=== PATIENT | female | born 1955 | race Caucasian/White ===

== ENCOUNTER → 2016-06-11 | Outpatient (CLI) | payer OTHER ==
[~2016-06-11] MED LIST: ALEN70TA2 PO; ALEN70TA47 PO; ALLO300T2 PO; ASPI-586 PO; CALC-654 PO; FURO-125 PO; HYDR-3816 PO; LORA10TA7 PO; ORPH100T PO; RT-ALBUINH IH
--- OUTSIDE RECORDS SUMMARY | 2016-06-11 17:56 | XMS REPORT | Continuity of Care Document ---
Author Author [facility] Organization [facility] Address Unknown Phone Unavailable Allergies Medications Problems Procedures Results Encounters ACCT No. Visit Date/Time Discharge Status Pt. Type Provider Facility Loc./Unit Complaint [id number] 12/25/2013 17:02:00 2013 23:59:59 CLS Outpatient
--- NOTE | 2016-06-11 19:09 | Diagnostic Imaging Report ---
INDICATION: Left leg swelling COMPARISON: None TECHNIQUE: Duplex, streeter-scale and color-flow imaging of the left lower extremity venous system was performed. FINDINGS: The common femoral vein, superficial femoral vein, profunda femoris, and popliteal veins are normal. These vessels show normal compressibility, color flow, and doppler augmentation. The deep calf veins, although not very well seen, demonstrate no distinct intraluminal thrombus. IMPRESSION: Negative venous Doppler of the left lower extremity. Dictated by: Dictated on workstation # [id number]
== END ==
LOC: RAD 17:52
PROVIDERS: ATTEND Nurse Practitioner Family
DX: R60.0 Localized edema (principal)

== ENCOUNTER → 2016-06-22 | Outpatient (CLI) | payer OTHER ==
--- OUTSIDE RECORDS SUMMARY | 2016-06-22 11:43 | XMS REPORT | Continuity of Care Document ---
Author Author [facility] Organization [facility] Address Unknown Phone Unavailable Allergies Medications Problems Date Dx Coded Attending Type Code Diagnosis Diagnosed By 06/11/2016 MARIANNE VU APRN Ot 719.45 JOINT PAIN-PELVIS 06/12/2016 MARIANNE VU APRN Ot R60.0 LOCALIZED EDEMA Procedures Results Encounters ACCT No. Visit Date/Time Discharge Status Pt. Type Provider Facility Loc./Unit Complaint [id number] 12/25/2013 17:02:00 2013 23:59:59 CLS Outpatient MARIANNE VU APRN [facility] RAD PAIN IN JOINT, HIP PAIN [id number] 06/11/2016 17:52:00 ACT Outpatient MARIANNE VU APRN [facility] RAD EDEMA OF LOWER EXTREMITY
--- NOTE | 2016-06-22 18:25 | Diagnostic Imaging Report ---
PA and lateral chest. INDICATION: Shortness of breath. There are no prior studies available for comparison. FINDINGS: Heart size is at the upper limits of normal. The lungs are clear. There is no evidence for failure, pneumonia or for pleural effusion. Mediastinum is not widened. The osseous structures are intact. IMPRESSION: There is no evidence for an acute cardiopulmonary abnormality. Dictated by: Dictated on workstation # [id number]
== END ==
LOC: RAD 11:39
DX: R63.4 Abnormal weight loss (principal)
CPT/HCPCS: 71020

== ENCOUNTER → 2016-06-24 | Outpatient (CLI) | payer OTHER ==
[~2016-06-24] MED LIST changes: +CATHETER FLUSH 10 ML SYR IV PRN; +IOHEXOL 350 MG/ML 100 ML (OMNIPAQUE 350) VIAL IV ONE; +NS 100 ML (IVPB) BAG IV ONE
--- OUTSIDE RECORDS SUMMARY | 2016-06-24 11:59 | XMS REPORT | Continuity of Care Document ---
Author Author [facility] Organization [facility] Address Unknown Phone Unavailable Allergies Medications Problems Date Dx Coded Attending Type Code Diagnosis Diagnosed By 06/11/2016 MARIANNE VU APRN Ot 719.45 JOINT PAIN-PELVIS 06/12/2016 MARIANNE VU APRN Ot R60.0 LOCALIZED EDEMA 06/22/2016 MARIANNE VU APRN Ot R60.0 LOCALIZED EDEMA 06/23/2016 NAHUN BRYAN, JES Gomez Ot R63.4 ABNORMAL WEIGHT LOSS Procedures Results Encounters ACCT No. Visit Date/Time Discharge Status Pt. Type Provider Facility Loc./Unit Complaint [id number] 12/25/2013 17:02:00 2013 23:59:59 CLS Outpatient MARIANNE VU APRN [facility] RAD PAIN IN JOINT, HIP PAIN [id number] 06/22/2016 11:39:00 ACT Outpatient NAHUN BRYAN , JES Gomez [facility] RAD ABNORMAL WEIGHT LOSS [id number] 06/11/2016 17:52:00 ACT Outpatient MARIANNE VU APRN [facility] RAD EDEMA OF LOWER EXTREMITY
--- NOTE | 2016-06-24 12:55 | Diagnostic Imaging Report ---
PROCEDURE: CT abdomen and pelvis with contrast. TECHNIQUE: Multiple contiguous axial images were obtained through the abdomen and pelvis after administration of intravenous contrast. INDICATION: Left-sided swelling, history of hysterectomy, gallbladder surgery, appendectomy. CONTRAST: 100 mL of Omnipaque was given intravenously. COMPARISON STUDIES: None. FINDINGS: The lung bases are clear. The liver appears normal. Tiny subcapsular hypodense nodule is present within the spleen measuring approximately 1 cm. This is probably a cyst. The pancreas, adrenal glands and kidneys are normal. Urinary bladder is normal. The uterus is absent. There is no ascites or free air. There is a 5 x 6.7 cm mass adjacent to the left acetabulum. The distal external iliac artery and veins sit just above this. This measures 57 Hounsfield units on postcontrast and delayed images. This may be a hematoma. No abnormal adenopathy is present. No free fluid is present. Mild degenerative changes are present in the spine and both hips. IMPRESSION: 1. There is a slightly hyperdense mass along the anteromedial aspect of the left acetabulum just posterior to the vascular structures. This is most likely a hematoma. Recommend followup exam either ultrasound or CT to document resolution. If the patient has had this for greater than several months, MRI scan would be recommended. Dictated by: Dictated on workstation # [id number]
== END ==
LOC: RAD 11:55
DX: R10.32 Left lower quadrant pain (principal)
CPT/HCPCS: 74177

== ENCOUNTER → 2016-07-03 | Outpatient (CLI) | payer OTHER ==
[~2016-07-03] MED LIST changes: -CATHETER FLUSH 10 ML SYR IV PRN; +GADOBUTROL 7.5 MMOL/7.5 ML (GADAVIST) VIAL IV ONE; -IOHEXOL 350 MG/ML 100 ML (OMNIPAQUE 350) VIAL IV ONE; -NS 100 ML (IVPB) BAG IV ONE
--- OUTSIDE RECORDS SUMMARY | 2016-07-03 15:07 | XMS REPORT | Continuity of Care Document ---
Author Author [facility] Organization [facility] Address Unknown Phone Unavailable Allergies Active Description Code Type Severity Reaction Onset Reported/Identified Relationship to Patient Clinical Status Yes No Allergy Information Available [id number] Drug Allergy Unknown N/A 06/24/2016 Medications Problems Date Dx Coded Attending Type Code Diagnosis Diagnosed By 06/11/2016 MARIANNE VU APRN Ot 719.45 JOINT PAIN-PELVIS 06/12/2016 MARIANNE VU APRN Ot R60.0 LOCALIZED EDEMA 06/22/2016 MARIANNE VU APRN Ot R60.0 LOCALIZED EDEMA 06/23/2016 JES GARNICA MD Ot R63.4 ABNORMAL WEIGHT LOSS 06/25/2016 JES GARNICA MD Ot R10.32 LEFT LOWER QUADRANT PAIN 06/30/2016 JES GARNICA MD Ot R10.32 LEFT LOWER QUADRANT PAIN 07/02/2016 MARIANNE VU APRN Ot R60.0 LOCALIZED EDEMA 07/02/2016 JES GARNICA MD Ot R10.32 LEFT LOWER QUADRANT PAIN 07/02/2016 JES GARNICA MD Ot R63.4 ABNORMAL WEIGHT LOSS Procedures Results Encounters ACCT No. Visit Date/Time Discharge Status Pt. Type Provider Facility Loc./Unit Complaint [id number] 12/25/2013 17:02:00 2013 23:59:59 CLS Outpatient MARIANNE VU APRN [facility] RAD PAIN IN JOINT, HIP PAIN [id number] 07/03/2016 15:02:00 ACT Outpatient JES GARNICA MD [facility] RAD I89.0 [id number] 06/24/2016 11:55:00 ACT Outpatient JES GARNICA MD [facility] RAD LLQ PAIN [id number] 06/22/2016 11:39:00 ACT Outpatient JES GARNICA MD [facility] RAD ABNORMAL WEIGHT LOSS [id number] 06/11/2016 17:52:00 ACT Outpatient MARIANNE VU APRN [facility] RAD EDEMA OF LOWER EXTREMITY
--- NOTE | 2016-07-03 17:09 | Diagnostic Imaging Report ---
PROCEDURE: MRI left joint lower extremity with and without contrast. TECHNIQUE: Multiplanar, multisequence pre and post contrast-enhanced MRI of the left lower extremity was accomplished. INDICATION: Left-sided swelling. FINDINGS: There are no previous MRI examinations available for comparison. The CT abdomen/pelvis exam performed on 06/24/2016 noted a slightly hyperdense mass measuring 5 x 6 cm along the pelvic sidewall on the left. This mass was suspicious to be a hematoma. On this study, the finding is again evident. This lesion has not changed significantly in size. On the post contrast series, there are areas of diminished signal within this mass and there is slight generalized enhancement of the mass itself. There also appears to be edema/inflammation of the subcutaneous fat of the lower leg. I suspect that this is secondary to compression of the venous structures by the mass. I am concerned that this mass is neoplastic in nature as opposed to hematoma. If further imaging is desired, then PET/CT would be recommended. There is no abnormal signal arising from the bony pelvis to suggest an acute abnormality. IMPRESSION: 1. The mass along the pelvic sidewall on the left seen previously is again evident. This finding is worrisome for neoplasm. Recommendations as above. 2. These results were discussed with Dr. Garett Fountain. Dictated by: Dictated on workstation # [id number]
== END ==
LOC: RAD 15:02
DX: I89.0 Lymphedema, not elsewhere classified (principal)
CPT/HCPCS: 73723

== ENCOUNTER 2016-07-13 07:08 | Day surgery (SDC) | payer OTHER ==
[~2016-07-13] VITALS: Ht 160 cm; Wt 59.4 kg
[2016-07-13] VITALS (14 sets, daily range): BP systolic 120–162; BP diastolic 67–86
[2016-07-13 08:02] LABS: MEAN PLATELET VOLUME 9.1 FL (7.4-10.4); RED BLOOD COUNT 3.55 10^6/uL (4.35-5.85); RED CELL DISTRIBUTION WIDTH 13.2 % (10.0-14.5); WHITE BLOOD COUNT 5.4 10^3/uL (4.3-11.0)
[2016-07-13 08:18] LABS: INR 0.9 (0.8-1.4); PROTHROMBIN TIME PATIENT 12.2 SEC (12.2-14.7)
[2016-07-13] MEDS ORDERED: LIDOCAINE 1% INJ 20 ML (XYLOCAINE) VIAL ONE (08:24)
[2016-07-13] MEDS ORDERED: fentaNYL INJECTION 100 MCG/2 ML AMP ONE (08:24)
[2016-07-13] MEDS ORDERED: LIDOCAINE 1% INJ 20 ML (XYLOCAINE) VIAL INJ ONE (09:15)
[2016-07-13] MEDS ORDERED: fentaNYL INJECTION 100 MCG/2 ML AMP IVP PRN (09:15)
--- NOTE | 2016-07-13 09:31 | Pre-Procedure Progress Note ---
Standard Progress Note Progress Notes/Assess & Plan Progress/Assessment & Plan H&P reviewed with the no changes. Left pelvic mass. Final Diagnosis Left pelvic mass TU BURCH MD Jul 13, 2016 09:31
--- NOTE | 2016-07-13 09:32 | Discharge Instructions ---
Discharge Instructions Home Medicaitons Changes Hold any current blood thinner home medications for [24 hours]. TU BURCH MD Jul 13, 2016 09:32
[2016-07-13] MEDS ORDERED: HYDROcodone/APAP 5 MG/325 MG (LORTAB) TAB PO PRN (09:45)
[2016-07-13] MEDS ORDERED: CALC-654 PO (09:55)
[2016-07-13] MEDS ORDERED: HYDR-3816 PO (09:55)
[2016-07-13] MEDS ORDERED: RT-ALBUINH IH (09:55)
[2016-07-13] MEDS ORDERED: ORPH100T PO (09:55)
[2016-07-13] MEDS ORDERED: ALEN70TA47 PO (09:55)
--- NOTE | 2016-07-13 10:45 | Diagnostic Imaging Report ---
EXAMINATION: CT-guided biopsy-pelvic mass. INDICATION: Left pelvic mass possibly arising from a left external iliac lymph node or adjacent to the left pelvic wall. Current history and physical and other medical records are reviewed prior to the procedure. CONSENT: Informed consent was obtained from the patient. The risks, benefits, potential complications and alternatives were reviewed and all questions answered to the patient's satisfaction. The patient's vital signs, cardiac rhythm, and pulse oximetry were observed throughout the procedure by qualified nursing personnel. medications: Fentanyl 25 mcg IV. FINDINGS: Left pelvic mass. PROCEDURE: After maximal sterile barrier technique preparation and draping, 1% lidocaine was utilized for local anesthesia. With the patient in supine position, and via anterior approach, a 17-gauge guide needle is introduced into the left pelvic mass under CT scan guidance. After confirming adequate positioning with saved CT images, multiple 18 gauge core biopsy specimens were obtained. Specimen in saline and in formalin were provided The patient tolerated the procedure well with no immediate complications. IMPRESSION: Successful CT-guided biopsy of left pelvic mass. Dictated by: Dictated on workstation # [id number]
--- OUTSIDE RECORDS SUMMARY | 2016-07-28 16:51 | XMS REPORT | Continuity of Care Document ---
Author Author [facility] Organization [facility] Address Unknown Phone Unavailable Allergies Active Description Code Type Severity Reaction Onset Reported/Identified Relationship to Patient Clinical Status Yes No Allergy Information Available [id number] Drug Allergy Unknown N/A 06/24/2016 Yes codeine [id number] Drug Allergy Mild NAUSEA 07/13/2016 Yes ibuprofen [id number] Drug Allergy Mild N/A 07/13/2016 Yes baclofen [id number] Drug Allergy Unknown N/A 07/13/2016 Yes doxycycline [id number] Drug Allergy Unknown N/A 07/13/2016 Yes pentazocine [id number] Drug Allergy Unknown N/A 07/13/2016 Yes pseudoephedrine [id number] Drug Allergy Unknown HIVES 07/13/2016 Medications Problems Date Dx Coded Attending Type Code Diagnosis Diagnosed By 06/11/2016 MARIANNE VU PRODUCTIVITY ENGINEER Ot 719.45 JOINT PAIN-PELVIS 06/12/2016 MARIANNE UV PRODUCTIVITY ENGINEER Ot R60.0 LOCALIZED EDEMA 06/22/2016 MARIANNE VU PRODUCTIVITY ENGINEER Ot R60.0 LOCALIZED EDEMA 06/23/2016 JES GARNICA MD Ot R63.4 ABNORMAL WEIGHT LOSS 06/25/2016 JES GARNICA MD Ot R10.32 LEFT LOWER QUADRANT PAIN 06/30/2016 JES GANRICA MD Ot R10.32 LEFT LOWER QUADRANT PAIN 07/02/2016 MARIANNE VU PRODUCTIVITY ENGINEER Ot R60.0 LOCALIZED EDEMA 07/02/2016 JES GARNICA MD Ot R10.32 LEFT LOWER QUADRANT PAIN 07/02/2016 JES GARNICA MD Ot R63.4 ABNORMAL WEIGHT LOSS 07/03/2016 JSE GARNICA MD Ot R63.4 ABNORMAL WEIGHT LOSS 07/13/2016 JES GARNICA MD Ot C85.19 UNSP B-CELL LYMPHOMA, EXTRANODAL AND LUIS 07/13/2016 JES GARNICA MD Ot D53.9 NUTRITIONAL ANEMIA, UNSPECIFIED 07/13/2016 JES GARNICA MD Ot M25.552 PAIN IN LEFT HIP 07/13/2016 JES GARNICA MD Ot R53.83 OTHER FATIGUE 07/13/2016 JES GARNICA MD Ot R60.0 LOCALIZED EDEMA 07/15/2016 JES GARNICA MD Ot R10.32 LEFT LOWER QUADRANT PAIN 07/16/2016 JES GARNICA MD Ot C85.19 UNSP B-CELL LYMPHOMA, EXTRANODAL AND LUIS 07/16/2016 JES GARNICA MD Ot D53.9 NUTRITIONAL ANEMIA, UNSPECIFIED 07/16/2016 JES GARNICA MD Ot M25.552 PAIN IN LEFT HIP 07/16/2016 JES GARNICA MD Ot R53.83 OTHER FATIGUE 07/16/2016 JES GARNICA MD Ot R60.0 LOCALIZED EDEMA 07/22/2016 JES GARNICA MD Ot C85.19 UNSP B-CELL LYMPHOMA, EXTRANODAL AND LUIS 07/22/2016 JES GARNICA MD Ot D53.9 NUTRITIONAL ANEMIA, UNSPECIFIED 07/22/2016 JES GARNICA MD Ot M25.552 PAIN IN LEFT HIP 07/22/2016 JES GARNICA MD Ot R53.83 OTHER FATIGUE 07/22/2016 JES GARNICA MD Ot R60.0 LOCALIZED EDEMA 07/23/2016 JES GARNICA MD Ot I89.0 LYMPHEDEMA, NOT ELSEWHERE CLASSIFIED Procedures Results Test Result Range Automated blood complete blood count (hemogram) panel - 07/13/16 07:55 Blood leukocytes automated count (number/volume) 5.4 10*3/ uL 4.3-11.0 Blood erythrocytes automated count (number/volume) 3.55 10*6 /uL 4.35-5.85 Venous blood hemoglobin measurement (mass/volume) 9.8 g/dL 11.5-16.0 Blood hematocrit (volume fraction) 31 % 35-52 Automated erythrocyte mean corpuscular volume 88 [foz_us] 80-99 Automated erythrocyte mean corpuscular hemoglobin (mass per erythrocyte) 28 pg 25-34 Automated erythrocyte mean corpuscular hemoglobin concentration measurement ( mass/volume) 31 g/dL 32-36 Automated erythrocyte distribution width ratio 13.2 % 10.0-14.5 Automated blood platelet count (count/volume) 299 10*3/uL 130-400 Automated blood platelet mean volume measurement 9.1 [foz_us ] 7.4-10.4 PT panel in platelet poor plasma by coagulation assay - 07/13/16 07:55 Prothrombin time (PT) in platelet poor plasma by coagulation assay 12.2 s 12.2-14.7 INR in platelet poor plasma or blood by coagulation assay 0.9 0.8-1.4 Activated partial thromboplastin time (aPTT) in platelet poor plasma bycoagulation assay - 07/13/16 07:55 Activated partial thromboplastin time (aPTT) in platelet poor plasma bycoagulation assay 29 s 24-35 Encounters ACCT No. Visit Date/Time Discharge Status Pt. Type Provider Facility Loc./Unit Complaint [id number] 07/13/2016 07:08:00 2016 14:10:00 DIS Outpatient JES GARNICA MD [facility] RAD GENERALIZED INTRA-ABD AND PELVIC SWELLING [id number] 12/25/2013 17:02:00 2013 23:59:59 CLS Outpatient MARIANNE VU APRN [facility] RAD PAIN IN JOINT, HIP PAIN [id number] 07/23/2016 10:03:00 ACT Outpatient SHANTI ADAMS [facility] ONC [id number] 07/03/2016 15:02:00 ACT Outpatient JES GARNICA MD [facility] RAD I89.0 [id number] 06/24/2016 11:55:00 ACT Outpatient JES GARNICA MD [facility] RAD LLQ PAIN [id number] 06/22/2016 11:39:00 ACT Outpatient JES GARNICA MD [facility] RAD ABNORMAL WEIGHT LOSS [id number] 06/11/2016 17:52:00 ACT Outpatient MARIANNE VU APRN [facility] RAD EDEMA OF LOWER EXTREMITY
== END 2016-07-13 14:10 | disposition home or self-care (01) ==
LOC: DELPENDDIS → RAD 07:08
DX: C85.19 Unspecified B-cell lymphoma, extranodal and solid organ sites (principal); M25.552 Pain in left hip; R53.83 Other fatigue; R60.0 Localized edema; D53.9 Nutritional anemia, unspecified
CPT/HCPCS: 36415; 77012; 85027; 85610; 85730; 88184; 88185; 88305; 88341; 88342

== ENCOUNTER → 2016-07-28 | Outpatient (CLI) | payer OTHER ==
[~2016-07-28] MED LIST changes: +BARIUM SUSPENSION 2.1% (VANILLA SILQ) 450 ML PO ONE; +CATHETER FLUSH 10 ML SYR IV PRN; -GADOBUTROL 7.5 MMOL/7.5 ML (GADAVIST) VIAL IV ONE; +IOHEXOL 350 MG/ML 100 ML (OMNIPAQUE 350) VIAL IV ONE; +NS 100 ML (IVPB) BAG IV ONE
--- NOTE | 2016-07-28 16:22 | Diagnostic Imaging Report ---
EXAMINATION: PET-CT TECHNIQUE: Serum glucose level at the time of the study is: 113 mg/dL. 12.5 mCi of FDG was administered intravenously followed by obtaining PET images with corresponding noncontrast CT scan images. The CT scan was performed for anatomic correlation and attenuation correction and was not performed according to the diagnostic protocol of the areas covered. The scan was performed from the head to mid thighs. INDICATION: Lymphoma. FINDINGS: There is a 9 x 6 left pelvic mass abutting the external iliac vessels on the left side and the adjacent aspect of the left iliac bone and anterior acetabulum. This is associated with highly intense degree of FDG uptake with maximum SUV of 29. This has some extension into the left inguinal region. A separate more inferior left the inguinal lymph node measuring 1.6 CM with the hypermetabolism is also seen. The FDG activity is inseparable from the activity seen within the distal left ureter. The FDG activity is also overlapping over the cortex of the anterior acetabulum and superior pubic ramus on the left side which is likely secondary to artifactual shine-through from the very intense hypermetabolism in the adjacent mass. Based on prior MRI, no bone or marrow involvement is identified. The spleen is normal in size with no hypermetabolic abnormal activity seen. Urinary tract activity is seen in the kidneys. There is no hypermetabolic mass seen above the diaphragm. Physiologic symmetric activity in the brain is noted. No hypermetabolic mass in the neck is identified. IMPRESSION: 1. Intensely hypermetabolic 9 cm left pelvic mass with extension into the left inguinal region is compatible with biopsy results of lymphoma. There is a separate more inferior mildly enlarged hypermetabolic lymph nodes seen. 2. Hypermetabolism projecting over the adjacent pelvic bones is probably an artifact with MRI of 07/03/2016 demonstrate the mass abutting the bone with no abnormal extension into the bone seen. 3. No other hypermetabolic mass or lymph node is seen. Dictated by: Dictated on workstation # [id number]
--- NOTE | 2016-07-28 16:57 | Diagnostic Imaging Report ---
PROCEDURE: CT chest, abdomen, and pelvis with contrast. TECHNIQUE: Multiple contiguous axial images were obtained through the chest, abdomen, and pelvis after the administration of intravenous contrast. INDICATION: Initial staging for lymphoma. FINDINGS: CT CHEST: There is no significantly enlarged axillary, mediastinal or hilar lymph nodes seen. The heart size is normal. The thoracic aorta is normal in caliber. The lungs demonstrate no significant consolidation, mass or suspicious nodule. The osseous structures demonstrate degenerative changes in the lower thoracic spine. CT ABDOMEN AND PELVIS: The liver, the spleen, the adrenal glands, and the pancreas demonstrate no definite abnormality. Air-filled lesion adjacent to the pancreatic head is probably a duodenal diverticulum. The kidneys have symmetric enhancement and contrast excretion. There is no hydronephrosis. The abdominal aorta is normal in caliber. No para-aortic significantly enlarged lymph nodes seen. There is a large left pelvic mass measuring 8.8 x 5.9 x 6.7 CM in size with heterogenous enhancement. This is probably arising from a left external iliac lymph node and is abutting and compressing the left external iliac vein. This has a lobulated extension inferiorly into the left inguinal region with a separate 1.6 cm left inguinal lymph node seen. There is no left common iliac or left internal iliac enlarged lymph nodes. There is incidental note of deep venous thrombosis involving the common femoral vein. Swelling of the visualized aspect superiorly in the left lower extremity is noted with subcutaneous edema. The osseous structures demonstrate no suspicious mass. The mass in the pelvis is abutting the pelvic bones along the acetabulum and adjacent aspect of the superior left pubic ramus with no definite direct invasion seen. Sclerotic focus in the anterior aspect of the right femoral neck measuring 1.2 cm is likely a bony island. IMPRESSION: CT CHEST: No lymphadenopathy or mass. CT ABDOMEN AND PELVIS: 1. A pelvic 8.8 cm mass probably arising from the left external iliac lymph node chain with an extension into the left inguinal region and a separate inferior 1.6 cm left inguinal lymph node is seen. 2. DVT involving the left common femoral vein. The findings were discussed with Dr. Manuel by Dr. Shelby at time of dictation. Dictated by: Dictated on workstation # [id number]
== END ==
LOC: RAD 10:48
PROVIDERS: ATTEND Internal Medicine Hematology & Oncology
DX: C85.10 Unspecified B-cell lymphoma, unspecified site (principal)
CPT/HCPCS: 71260; 74177

== ENCOUNTER 2016-07-30 05:37 | Outpatient (CLI) | payer OTHER ==
[~2016-07-30] VITALS: Ht 160 cm; Wt 59.4 kg
[~2016-07-30 05:37] MED LIST changes: -ALEN70TA2 PO; -ALLO300T2 PO; -ASPI-586 PO; -FURO-125 PO; -LORA10TA7 PO
[2016-07-30] MEDS ORDERED: HYDR-3816 PO (11:58)
[2016-07-30] MEDS ORDERED: FURO-125 PO (11:58)
[2016-07-30] MEDS ORDERED: ALLO300T2 PO (11:58)
[2016-07-31] MEDS ORDERED: ALEN70TA2 PO (06:46)
[2016-07-31] MEDS ORDERED: LORA10TA7 PO (06:46)
[2016-07-31] MEDS ORDERED: ORPH100T PO (06:46)
[2016-07-31] MEDS ORDERED: ASPI-586 PO (07:12)
== END 2016-07-30 11:59 ==
LOC: PREOP 05:37
PROVIDERS: ATTEND Surgery
DX: Z01.818 Encounter for other preprocedural examination (principal); C85.90 Non-Hodgkin lymphoma, unspecified, unspecified site

== ENCOUNTER → 2016-07-30 | Outpatient (CLI) | payer OTHER ==
[~2016-07-30] MED LIST changes: -BARIUM SUSPENSION 2.1% (VANILLA SILQ) 450 ML PO ONE; -CATHETER FLUSH 10 ML SYR IV PRN; -IOHEXOL 350 MG/ML 100 ML (OMNIPAQUE 350) VIAL IV ONE; -NS 100 ML (IVPB) BAG IV ONE
--- NOTE | 2016-07-31 06:46 | ECHOCARDIOGRAPHY REPORT ---
DATE OF SERVICE: 2D ECHOCARDIOGRAM REPORT DATE OF SERVICE: 07/30/2016 PRIMARY PHYSICIAN: Dr. aGrett Fountain ORDERING PHYSICIAN: Dr. Fadumo Faust DIAGNOSIS: C83.30 FINDINGS: 1. Sinus rhythm. 2. Left atrial dimension is normal. 3. Aortic root dimension is normal. 4. Left ventricular systolic function is hyperdynamic. Left ventricular ejection fraction is 75%. No LVH is present. 5. There is no wall motion abnormalities. 6. Right heart function and size is normal. 7. There is no evidence of pericardial effusion. 8. Mild diastolic dysfunction is present. 9. IVC is normal with diameter 1.4 cm. VALVULAR STRUCTURES OF THE HEART: There is trace pulmonic insufficiency and aortic insufficiency. There is mild tricuspid regurgitation with RVSP of 32 mmHg. There is no mitral valve pathology. CONCLUSION: 1. Hyperdynamic left ventricle with an ejection fraction of 75% which may suggest dehydration. 2. Right ventricle size and function is normal. 3. There is no significant valvular heart disease. 4. There is mild diastolic dysfunction. 5. There is mild pulmonary hypertension with RVSP of 32 mmHg. Job ID: [id number] DocumentID: [id number] Dictated Date: 07/30/2016 14:49:31 Martial Arts Instructor Date: 07/30/2016 15:28:21 Dictated By: RITO DEMPSEY MD
== END ==
LOC: CARD 08:51
PROVIDERS: ATTEND Internal Medicine Hematology & Oncology
DX: Z01.810 Encounter for preprocedural cardiovascular examination (principal); C83.30 Diffuse large B-cell lymphoma, unspecified site
CPT/HCPCS: 93306

== ENCOUNTER 2016-07-31 06:13 | Day surgery (SDC) | payer OTHER ==
[~2016-07-31] VITALS: Ht 160 cm; Wt 59.4 kg
[~2016-07-31 06:13] MED LIST changes: +ALLO300T2 PO; +FURO-125 PO
[2016-07-31] MEDS ORDERED: ALEN70TA2 PO (06:46)
[2016-07-31] MEDS ORDERED: ORPH100T PO (06:46)
[2016-07-31] MEDS ORDERED: LORA10TA7 PO (06:46)
[2016-07-31 07:05] VITALS: BP 106/83
[2016-07-31] MEDS: LACTATED RINGERS 1,000 ML IV PRN ×2 (07:11→09:45)
[2016-07-31] MEDS ORDERED: ASPI-586 PO (07:12)
[2016-07-31] MEDS ORDERED: ceFAZolin 1,000 MG (ANCEF) VIAL ONE (07:14)
[2016-07-31] MEDS ORDERED: NS (IVPB) 50 ML ONE (07:14)
[2016-07-31] MEDS ORDERED: LIDOCAINE 1% INJ 20 ML (XYLOCAINE) VIAL ONE (07:21)
[2016-07-31] MEDS ORDERED: HEParin (CENTRAL IV FLUSH) 500 UNIT/5 ML SYR ONE (07:21)
[2016-07-31] MEDS ORDERED: BUPIVACAINE 0.5% 30 ML (SENSORCAINE) VIAL ONE (07:21)
[2016-07-31] MEDS ORDERED: 0.9% SODIUM CHLORIDE PF INJ 20 ML VIAL ONE (07:21)
[2016-07-31] MEDS ORDERED: MIDAZOLAM 2 MG/2 ML (VERSED) VIAL ONE (07:29)
[2016-07-31] MEDS ORDERED: proPOfol 200 MG/20 ML (DIPRIVAN) VIAL IV ONE (07:29)
--- NOTE | 2016-07-31 08:13 | Discharge Inst-Simple/Standard ---
Discharge Inst-Standard Patient Instructions/Follow Up Plan of Care/Instructions/FU: Follow up with Dr. Chavez in 2 weeks Apply ice to area for 15 mins on and 15 mins off. Activity as Tolerated: No Discharge Diet: No Restrictions Other Inst to Patient Follow up Appt: Make appointment for 2 weeks. Apply ice to area for 15 mins on and 15 mins off. Instructions: No lifting greater than 10 pounds. No strenuous activity. May shower in 24 hours, no tub bath or soaking. Use incentive spirometer at home as directed. No Smoking Skin/Wound Care: May remove bandages. You need to leave the white strips over incision on they will fall off on their own. Symptoms to Report: Appetite Changes, Extremity Discoloration, Numbness/Tingling, Swelling Increased , Bleeding Excessive, Eyesight Changes, Pain Increased, Urine Color Change, Constipation(Persistent), Fever over 101 degree F, Pain/Pressure in chest, Urinating Difficulty, Cough Up/Vomit Blood, Heart Beat Irreg/Pounding, Pain/ Pressure in jaw, Vaginal Bleeding Increase, Cramps in feet or legs, Lightheadedness, Pain/Pressure in shoulder, Diarrhea(Persistent), Memory Changes Suddenly, Questions/Concerns, Weight gain consecutive days, Dizziness/ Fainting, Nausea/Vomiting, Shortness of Breath, Weight gain over 2 pounds If questions or concerns contact your physician Or seek help at emergency department. TARA SCHWARZ APRN Jul 31, 2016 08:13
--- NOTE | 2016-07-31 09:00 | Progress Note-Pre Operative ---
Pre-Operative Progress Note H&P Reviewed The H&P was reviewed, patient examined and no changes noted. Date H&P Reviewed: Jul 31, 2016 Time H&P Reviewed: 08:59 Pre-Operative Diagnosis: lymphoma OMER SORENSEN DO Jul 31, 2016 9:00 am
[2016-07-31] MEDS ORDERED: fentaNYL INJECTION 100 MCG/2 ML AMP ONE (09:17)
[2016-07-31] MEDS ORDERED: LACTATED RINGERS 1,000 ML IV ONE (09:44)
--- NOTE | 2016-07-31 09:53 | Progress Note-Post Operative ---
Post-Operative Progess Note Surgeon (s)/Creative/Art Director (s) Surgeon OMER SORENSEN DO Creative/Art Director: 0 Pre-Operative Diagnosis lymphoma Post-Operative Diagnosis SAME Post-Op Procedure Note Date of Procedure: Jul 31, 2016 Name of Procedure Performed: POWER PORT PLACEMENT RIGHT IJ USING U/S GUIDANCE Description of the Procedure: SEE NOTE Findings of the Procedure SEE NOTE Anesthesia Type MAC C LOCAL Estimated blood loss (mL): MINIMAL Specimen(s) collected/removed NONE OMER SORENSEN DO Jul 31, 2016 9:53 am
[2016-07-31] MEDS ORDERED: fentaNYL INJECTION 100 MCG/2 ML AMP IVP PRN (10:00)
[2016-07-31 10:20] VITALS: BP 114/66
--- NOTE | 2016-07-31 10:24 | Diagnostic Imaging Report ---
Portable upright radiograph of the chest. INDICATION: Port placement. FINDINGS: There is a left port placed with the tip at the upper SVC level. There is no pneumothorax. The heart size is moderately enlarged with no evidence of failure. No effusion or pneumothorax. IMPRESSION: Cardiomegaly. Right port placed with the tip in the SVC. Dictated by: Dictated on workstation # [id number]
[2016-07-31 10:50] VITALS: BP 117/64
[2016-07-31 11:20] VITALS: BP 112/69
[2016-07-31 12:08] VITALS: BP 112/69
--- NOTE | 2016-07-31 16:14 | Diagnostic Imaging Report ---
EXAM: Intraoperative image of the chest. INDICATION: Post placement. FINDINGS: 22 seconds of fluoroscopy time were Provided. IMPRESSION: Provided image demonstrates a right IJ port placement with the tip at the SVC level. Dictated by: Dictated on workstation # [id number]
--- NOTE | 2016-08-03 13:04 | OPERATIVE REPORT ---
PROCEDURE PHYSICIAN: OMER CHAVEZ DATE OF PROCEDURE: 07/31/2016 PREOPERATIVE DIAGNOSIS: Lymphoma. POSTOPERATIVE DIAGNOSIS: Lymphoma. PROCEDURE: Power port placement using ultrasound guidance right internal jugular vein. SURGEON: Dr. Chavez. ANESTHESIA: MAC with local. ESTIMATED BLOOD LOSS: Minimal. COMPLICATIONS: None. INDICATIONS: The patient is a 61-year-old female who presents for port placement for lymphoma. She understands the risks and benefits of the procedure and wishes to proceed with procedure. Consent signed on the chart. PROCEDURE: The patient was taken to the operating suite. She was prepped and draped in sterile fashion. A surgical pause was performed. Using ultrasound, the right internal jugular vein was located. Local anesthetic was infiltrated into the area and the right internal jugular vein was accessed with micro-access needle. Dark nonpulsatile blood was withdrawn. The micro-access wire was inserted and fluoroscopy assured proper placement. The dilator sheath was then advanced over the wire and the wire was removed. The normal guidewire was inserted and fluoroscopy assured proper placement. The wire was then secured. Local anesthetic was infiltrated along the right neck for tunneling purposes onto the right chest. A 15 blade scalpel was used to make an incision over the right chest for creating a pocket. Cautery was used to dissect along with blunt dissection in order to create the pocket. Once the pocket was created, a dilator sheath was then advanced over the wire under fluoroscopy and the wire and dilator were removed. The Groshong catheter was inserted through the sheath and the sheath was then removed. The Groshong wire was removed. The catheter was then tunneled from the neck to the right chest. It was then cut to length and secured to the port which was then placed within the pocket. The port was then accessed without difficulty. It withdrew blood and flushed first with saline and then with heparin without difficulty. The subcutaneous tissues were then reapproximated using 3-0 Vicryl. Skin was then closed using 4-0 Vicryl in a running subcuticular fashion. The areas were washed and dried. Mastisol and Steri-Strips were applied. Sterile bandage was applied. Dermabond was placed over the insertion point on the neck. The patient tolerated the procedure well with any complications. She was taken to the recovery room in stable condition. Chest x-ray is pending. Job ID: [id number] Dictated Date: 07/31/2016 09:56:00 Conference Interpreter Date: 08/03/2016 12:59:37 / luis fernando
== END 2016-07-31 12:08 | disposition home or self-care (01) ==
LOC: SDC 06:13
PROVIDERS: ATTEND Surgery
DX: C85.90 Non-Hodgkin lymphoma, unspecified, unspecified site (principal)
CPT/HCPCS: 71010; 87081

== ENCOUNTER → 2016-09-22 | Outpatient (CLI) | payer OTHER ==
[~2016-09-22] MED LIST changes: +ALEN70TA2 PO; +ASPI-586 PO; +LORA10TA7 PO
--- NOTE | 2016-09-22 14:03 | Diagnostic Imaging Report ---
EXAMINATION: PET-CT TECHNIQUE: Serum glucose level at the time of the study is: 125 mg/dL. 13.6 mCi of FDG was administered intravenously followed by obtaining PET images with corresponding noncontrast CT scan images. The CT scan was performed for anatomic correlation and attenuation correction and was not performed according to the diagnostic protocol of the areas covered. The scan was performed from the head to mid thighs. INDICATION: Diffuse large cell lymphoma. COMPARISON: 07/28/16 FINDINGS: There is symmetric FDG uptake in the brain. No suspicious hypermetabolic mass or enlarged lymph node is seen in the neck. No suspicious hypermetabolism is seen in the chest. In the abdomen and pelvis, there is urinary tract excretion and physiologic bowel activity noted. In the pelvis along the left iliac bone, there is a hypermetabolic mass with areas of necrosis seen centrally abutting the lateral right pelvic osseous margin and extending anteriorly along the anterior aspect of the acetabulum. Maximum SUV is 16. This is a significant improvement compared to the previous exam where comparable area demonstrates up to SUV values of 30. There is also significant overall decrease in the size of the mass measuring now 5.7 x 2.3 cm compared to maximum prior measurements of 9.1 x 5.4 cm. IMPRESSION: There is significant improvement with significant decrease in the size of the previously seen mass in the left pelvis. Although less prominent FDG activity is present, still there are components with intense increased FDG uptake in the remaining portions of the mass. No other hypermetabolic mass is seen. Dictated by: Dictated on workstation # [id number]
== END ==
LOC: RAD 07:50
PROVIDERS: ATTEND Nurse Practitioner Adult Health
DX: C83.36 Diffuse large B-cell lymphoma, intrapelvic lymph nodes (principal)

== ENCOUNTER → 2016-10-21 | Outpatient (RCR) | payer OTHER ==
[2016-07-23 10:54] LABS: BASOPHILS % (AUTO) 0 % (0-10); EOSINOPHILS # (AUTO) 0.2 10^3/uL (0.0-0.3); EOSINOPHILS % (AUTO) 4 % (0-10); LYMPHOCYTES # (AUTO) 0.2 X 10^3 (1.0-4.0); LYMPHOCYTES % (AUTO) 4 % (12-44); MEAN CORPUSCULAR HEMOGLOBIN 27 PG (25-34); MEAN CORPUSCULAR HGB CONC 31 G/DL (32-36); MEAN CORPUSCULAR VOLUME 88 FL (80-99); MEAN PLATELET VOLUME 8.9 FL (7.4-10.4); MONOCYTES # (AUTO) 0.4 X 10^3 (0.0-1.0); MONOCYTES % (AUTO) 9 % (0-12); NEUTROPHILS # (AUTO) 3.7 X 10^3 (1.8-7.8); NEUTROPHILS % (AUTO) 82 % (42-75); PLATELET COUNT 334 10^3/uL (130-400); RED BLOOD COUNT 3.63 10^6/uL (4.35-5.85); RED CELL DISTRIBUTION WIDTH 13.2 % (10.0-14.5); WHITE BLOOD COUNT 4.5 10^3/uL (4.3-11.0)
[2016-07-23 12:01] LABS: ALANINE AMINOTRANSFERASE 8 U/L (0-55); ALBUMIN 3.7 G/DL (3.2-4.5); ANION GAP 6 MMOL/L (5-14); ASPARTATE AMINO TRANSFERASE 16 U/L (5-34); BILIRUBIN,TOTAL 0.3 MG/DL (0.1-1.0); BLOOD UREA NITROGEN 16 MG/DL (7-18); BUN/CREATININE RATIO 20; CALCIUM 9.5 MG/DL (8.5-10.1); CARBON DIOXIDE 30 MMOL/L (21-32); CHLORIDE 103 MMOL/L (98-107); CREATININE SERUM 0.79 MG/DL (0.60-1.30); GFR ESTIMATED > 60; GLUCOSE 95 MG/DL (70-105); LACTATE DEHYDROGENASE 221 U/L (125-220); POTASSIUM 4.6 MMOL/L (3.6-5.0); SODIUM 139 MMOL/L (135-145); TOTAL PROTEIN 7.2 G/DL (6.4-8.2)
[2016-07-23 12:41] LABS: URIC ACID 4.7 MG/DL (2.6-7.2)
[2016-08-05 15:36] LABS: BASOPHILS % (AUTO) 0 % (0-10); EOSINOPHILS % (AUTO) 0 % (0-10); LYMPHOCYTES # (AUTO) 0.2 X 10^3 (1.0-4.0); LYMPHOCYTES % (AUTO) 2 % (12-44); MEAN CORPUSCULAR HEMOGLOBIN 27 PG (25-34); MEAN CORPUSCULAR HGB CONC 31 G/DL (32-36); MEAN CORPUSCULAR VOLUME 87 FL (80-99); MEAN PLATELET VOLUME 8.5 FL (7.4-10.4); MONOCYTES # (AUTO) 0.2 X 10^3 (0.0-1.0); MONOCYTES % (AUTO) 2 % (0-12); NEUTROPHILS # (AUTO) 8.8 X 10^3 (1.8-7.8); NEUTROPHILS % (AUTO) 96 % (42-75); PLATELET COUNT 270 10^3/uL (130-400); RED BLOOD COUNT 3.37 10^6/uL (4.35-5.85); WHITE BLOOD COUNT 9.2 10^3/uL (4.3-11.0)
[2016-08-05 15:59] LABS: ALANINE AMINOTRANSFERASE < 6 U/L (0-55); ALBUMIN 3.3 G/DL (3.2-4.5); ANION GAP 7 MMOL/L (5-14); ASPARTATE AMINO TRANSFERASE 9 U/L (5-34); BILIRUBIN,TOTAL 0.2 MG/DL (0.1-1.0); BLOOD UREA NITROGEN 13 MG/DL (7-18); BUN/CREATININE RATIO 17; CALCIUM 8.9 MG/DL (8.5-10.1); CARBON DIOXIDE 23 MMOL/L (21-32); CHLORIDE 109 MMOL/L (98-107); CREATININE SERUM 0.75 MG/DL (0.60-1.30); GFR ESTIMATED > 60; GLUCOSE 112 MG/DL (70-105); POTASSIUM 4.3 MMOL/L (3.6-5.0); SODIUM 139 MMOL/L (135-145); TOTAL PROTEIN 6.2 G/DL (6.4-8.2); URIC ACID 2.9 MG/DL (2.6-7.2)
[2016-08-12 09:47] LABS: BASOPHILS % (AUTO) 1 % (0-10); EOSINOPHILS # (AUTO) 0.1 10^3/uL (0.0-0.3); EOSINOPHILS % (AUTO) 7 % (0-10); LYMPHOCYTES # (AUTO) 0.1 X 10^3 (1.0-4.0); LYMPHOCYTES % (AUTO) 5 % (12-44); MEAN CORPUSCULAR HEMOGLOBIN 27 PG (25-34); MEAN CORPUSCULAR HGB CONC 31 G/DL (32-36); MEAN CORPUSCULAR VOLUME 86 FL (80-99); MEAN PLATELET VOLUME 9.2 FL (7.4-10.4); MONOCYTES # (AUTO) 0.1 X 10^3 (0.0-1.0); MONOCYTES % (AUTO) 7 % (0-12); NEUTROPHILS # (AUTO) 1.5 X 10^3 (1.8-7.8); NEUTROPHILS % (AUTO) 80 % (42-75); PLATELET COUNT 275 10^3/uL (130-400); RED BLOOD COUNT 3.88 10^6/uL (4.35-5.85); RED CELL DISTRIBUTION WIDTH 12.8 % (10.0-14.5); WHITE BLOOD COUNT 1.9 10^3/uL (4.3-11.0)
[2016-08-12 10:10] LABS: ALANINE AMINOTRANSFERASE 46 U/L (0-55); ALBUMIN 3.6 G/DL (3.2-4.5); ANION GAP 8 MMOL/L (5-14); ASPARTATE AMINO TRANSFERASE 41 U/L (5-34); BILIRUBIN,TOTAL 0.3 MG/DL (0.1-1.0); BLOOD UREA NITROGEN 15 MG/DL (7-18); BUN/CREATININE RATIO 20; CALCIUM 8.9 MG/DL (8.5-10.1); CARBON DIOXIDE 29 MMOL/L (21-32); CHLORIDE 103 MMOL/L (98-107); CREATININE SERUM 0.75 MG/DL (0.60-1.30); GFR ESTIMATED > 60; GLUCOSE 95 MG/DL (70-105); POTASSIUM 3.5 MMOL/L (3.6-5.0); SODIUM 140 MMOL/L (135-145); TOTAL PROTEIN 6.6 G/DL (6.4-8.2); URIC ACID 2.9 MG/DL (2.6-7.2)
[2016-08-19 15:08] LABS: BASOPHILS % (AUTO) 0 % (0-10); EOSINOPHILS % (AUTO) 0 % (0-10); LYMPHOCYTES # (AUTO) 0.3 X 10^3 (1.0-4.0); LYMPHOCYTES % (AUTO) 4 % (12-44); MEAN CORPUSCULAR HEMOGLOBIN 27 PG (25-34); MEAN CORPUSCULAR HGB CONC 31 G/DL (32-36); MEAN CORPUSCULAR VOLUME 86 FL (80-99); MEAN PLATELET VOLUME 9.2 FL (7.4-10.4); MONOCYTES # (AUTO) 0.4 X 10^3 (0.0-1.0); MONOCYTES % (AUTO) 6 % (0-12); NEUTROPHILS # (AUTO) 6.2 X 10^3 (1.8-7.8); NEUTROPHILS % (AUTO) 89 % (42-75); PLATELET COUNT 238 10^3/uL (130-400); RED BLOOD COUNT 3.61 10^6/uL (4.35-5.85); WHITE BLOOD COUNT 6.9 10^3/uL (4.3-11.0)
[2016-08-19 15:38] LABS: ANION GAP 8 MMOL/L (5-14); BLOOD UREA NITROGEN 10 MG/DL (7-18); BUN/CREATININE RATIO 13; CALCIUM 9.5 MG/DL (8.5-10.1); CARBON DIOXIDE 26 MMOL/L (21-32); CHLORIDE 103 MMOL/L (98-107); CREATININE SERUM 0.78 MG/DL (0.60-1.30); GFR ESTIMATED > 60; GLUCOSE 138 MG/DL (70-105); POTASSIUM 4.6 MMOL/L (3.6-5.0); SODIUM 137 MMOL/L (135-145); URIC ACID 3.1 MG/DL (2.6-7.2)
[2016-08-26 15:05] LABS: BASOPHILS % (AUTO) 1 % (0-10); EOSINOPHILS # (AUTO) 0.1 10^3/uL (0.0-0.3); EOSINOPHILS % (AUTO) 1 % (0-10); LYMPHOCYTES # (AUTO) 0.2 X 10^3 (1.0-4.0); LYMPHOCYTES % (AUTO) 5 % (12-44); MEAN CORPUSCULAR HEMOGLOBIN 26 PG (25-34); MEAN CORPUSCULAR HGB CONC 30 G/DL (32-36); MEAN CORPUSCULAR VOLUME 87 FL (80-99); MEAN PLATELET VOLUME 9.1 FL (7.4-10.4); MONOCYTES # (AUTO) 0.4 X 10^3 (0.0-1.0); MONOCYTES % (AUTO) 7 % (0-12); NEUTROPHILS # (AUTO) 4.3 X 10^3 (1.8-7.8); NEUTROPHILS % (AUTO) 86 % (42-75); PLATELET COUNT 390 10^3/uL (130-400); RED BLOOD COUNT 3.72 10^6/uL (4.35-5.85); RED CELL DISTRIBUTION WIDTH 15.2 % (10.0-14.5); WHITE BLOOD COUNT 4.9 10^3/uL (4.3-11.0)
[2016-08-26 15:22] LABS: ANION GAP 7 MMOL/L (5-14); BLOOD UREA NITROGEN 13 MG/DL (7-18); BUN/CREATININE RATIO 17; CALCIUM 9.9 MG/DL (8.5-10.1); CARBON DIOXIDE 26 MMOL/L (21-32); CHLORIDE 104 MMOL/L (98-107); CREATININE SERUM 0.76 MG/DL (0.60-1.30); GFR ESTIMATED > 60; GLUCOSE 101 MG/DL (70-105); POTASSIUM 4.5 MMOL/L (3.6-5.0); SODIUM 137 MMOL/L (135-145); URIC ACID 2.8 MG/DL (2.6-7.2)
[2016-09-02 08:46] LABS: BASOPHILS % (AUTO) 1 % (0-10); EOSINOPHILS # (AUTO) 0.1 10^3/uL (0.0-0.3); EOSINOPHILS % (AUTO) 3 % (0-10); LYMPHOCYTES # (AUTO) 0.1 X 10^3 (1.0-4.0); LYMPHOCYTES % (AUTO) 4 % (12-44); MEAN CORPUSCULAR HEMOGLOBIN 27 PG (25-34); MEAN CORPUSCULAR HGB CONC 31 G/DL (32-36); MEAN CORPUSCULAR VOLUME 86 FL (80-99); MEAN PLATELET VOLUME 9.6 FL (7.4-10.4); MONOCYTES # (AUTO) 0.5 X 10^3 (0.0-1.0); MONOCYTES % (AUTO) 13 % (0-12); NEUTROPHILS # (AUTO) 2.8 X 10^3 (1.8-7.8); NEUTROPHILS % (AUTO) 80 % (42-75); PLATELET COUNT 335 10^3/uL (130-400); RED BLOOD COUNT 3.51 10^6/uL (4.35-5.85); RED CELL DISTRIBUTION WIDTH 15.1 % (10.0-14.5); WHITE BLOOD COUNT 3.5 10^3/uL (4.3-11.0)
[2016-09-02 09:07] LABS: ALBUMIN 3.8 G/DL (3.2-4.5); BILIRUBIN,TOTAL 0.3 MG/DL (0.1-1.0); CALCIUM 9.8 MG/DL (8.5-10.1); CREATININE SERUM 0.96 MG/DL (0.60-1.30); TOTAL PROTEIN 6.8 G/DL (6.4-8.2); URIC ACID 2.8 MG/DL (2.6-7.2)
[2016-09-07 13:32] LABS: BASOPHILS # (AUTO) 0.2 10^3/uL (0.0-0.1); BASOPHILS % (AUTO) 2 % (0-10); EOSINOPHILS # (AUTO) 0.1 10^3/uL (0.0-0.3); EOSINOPHILS % (AUTO) 0 % (0-10); LYMPHOCYTES # (AUTO) 0.2 X 10^3 (1.0-4.0); LYMPHOCYTES % (AUTO) 1 % (12-44); MEAN CORPUSCULAR HEMOGLOBIN 27 PG (25-34); MEAN CORPUSCULAR HGB CONC 32 G/DL (32-36); MEAN CORPUSCULAR VOLUME 84 FL (80-99); MEAN PLATELET VOLUME 10.6 FL (7.4-10.4); MONOCYTES # (AUTO) 0.1 X 10^3 (0.0-1.0); MONOCYTES % (AUTO) 1 % (0-12); NEUTROPHILS # (AUTO) 11.7 X 10^3 (1.8-7.8); NEUTROPHILS % (AUTO) 96 % (42-75); PLATELET COUNT 289 10^3/uL (130-400); RED BLOOD COUNT 4.29 10^6/uL (4.35-5.85); RED CELL DISTRIBUTION WIDTH 14.7 % (10.0-14.5); WHITE BLOOD COUNT 12.2 10^3/uL (4.3-11.0)
[2016-09-07 13:51] LABS: ANION GAP 9 MMOL/L (5-14); BLOOD UREA NITROGEN 16 MG/DL (7-18); BUN/CREATININE RATIO 25; CALCIUM 9.7 MG/DL (8.5-10.1); CARBON DIOXIDE 24 MMOL/L (21-32); CHLORIDE 100 MMOL/L (98-107); CREATININE SERUM 0.63 MG/DL (0.60-1.30); GFR ESTIMATED > 60; GLUCOSE 113 MG/DL (70-105); POTASSIUM 3.7 MMOL/L (3.6-5.0); SODIUM 133 MMOL/L (135-145)
[2016-09-16 14:35] LABS: BASOPHILS % (AUTO) 0 % (0-10); EOSINOPHILS # (AUTO) 0.1 10^3/uL (0.0-0.3); EOSINOPHILS % (AUTO) 1 % (0-10); LYMPHOCYTES # (AUTO) 0.2 X 10^3 (1.0-4.0); LYMPHOCYTES % (AUTO) 4 % (12-44); MEAN CORPUSCULAR HEMOGLOBIN 26 PG (25-34); MEAN CORPUSCULAR HGB CONC 31 G/DL (32-36); MEAN CORPUSCULAR VOLUME 86 FL (80-99); MEAN PLATELET VOLUME 9.2 FL (7.4-10.4); MONOCYTES # (AUTO) 0.4 X 10^3 (0.0-1.0); MONOCYTES % (AUTO) 7 % (0-12); NEUTROPHILS # (AUTO) 5.3 X 10^3 (1.8-7.8); NEUTROPHILS % (AUTO) 88 % (42-75); PLATELET COUNT 242 10^3/uL (130-400); RED BLOOD COUNT 3.43 10^6/uL (4.35-5.85); RED CELL DISTRIBUTION WIDTH 15.8 % (10.0-14.5)
[2016-09-16 15:30] LABS: ANION GAP 10 MMOL/L (5-14); BLOOD UREA NITROGEN 11 MG/DL (7-18); BUN/CREATININE RATIO 16; CARBON DIOXIDE 24 MMOL/L (21-32); CHLORIDE 105 MMOL/L (98-107); CREATININE SERUM 0.69 MG/DL (0.60-1.30); GFR ESTIMATED > 60; GLUCOSE 101 MG/DL (70-105); POTASSIUM 4.1 MMOL/L (3.6-5.0); SODIUM 139 MMOL/L (135-145); URIC ACID 4.5 MG/DL (2.6-7.2)
[2016-09-23 14:05] LABS: BASOPHILS % (AUTO) 0 % (0-10); EOSINOPHILS % (AUTO) 1 % (0-10); LYMPHOCYTES # (AUTO) 0.3 X 10^3 (1.0-4.0); LYMPHOCYTES % (AUTO) 4 % (12-44); MEAN CORPUSCULAR HEMOGLOBIN 27 PG (25-34); MEAN CORPUSCULAR HGB CONC 31 G/DL (32-36); MEAN CORPUSCULAR VOLUME 87 FL (80-99); MEAN PLATELET VOLUME 9.6 FL (7.4-10.4); MONOCYTES # (AUTO) 0.5 X 10^3 (0.0-1.0); MONOCYTES % (AUTO) 8 % (0-12); NEUTROPHILS # (AUTO) 5.8 X 10^3 (1.8-7.8); NEUTROPHILS % (AUTO) 87 % (42-75); PLATELET COUNT 355 10^3/uL (130-400); RED CELL DISTRIBUTION WIDTH 16.2 % (10.0-14.5); WHITE BLOOD COUNT 6.6 10^3/uL (4.3-11.0)
[2016-09-23 14:22] LABS: ANION GAP 6 MMOL/L (5-14); BLOOD UREA NITROGEN 13 MG/DL (7-18); BUN/CREATININE RATIO 17; CALCIUM 9.4 MG/DL (8.5-10.1); CARBON DIOXIDE 25 MMOL/L (21-32); CHLORIDE 107 MMOL/L (98-107); CREATININE SERUM 0.75 MG/DL (0.60-1.30); GFR ESTIMATED > 60; GLUCOSE 95 MG/DL (70-105); POTASSIUM 4.4 MMOL/L (3.6-5.0); SODIUM 138 MMOL/L (135-145); URIC ACID 4.2 MG/DL (2.6-7.2)
[2016-09-30 10:11] LABS: BASOPHILS % (AUTO) 0 % (0-10); EOSINOPHILS # (AUTO) 0.1 10^3/uL (0.0-0.3); EOSINOPHILS % (AUTO) 2 % (0-10); LYMPHOCYTES # (AUTO) 0.2 X 10^3 (1.0-4.0); LYMPHOCYTES % (AUTO) 5 % (12-44); MEAN CORPUSCULAR HEMOGLOBIN 27 PG (25-34); MEAN CORPUSCULAR HGB CONC 31 G/DL (32-36); MEAN CORPUSCULAR VOLUME 86 FL (80-99); MEAN PLATELET VOLUME 9.5 FL (7.4-10.4); MONOCYTES # (AUTO) 0.4 X 10^3 (0.0-1.0); MONOCYTES % (AUTO) 10 % (0-12); NEUTROPHILS # (AUTO) 3.4 X 10^3 (1.8-7.8); NEUTROPHILS % (AUTO) 83 % (42-75); PLATELET COUNT 318 10^3/uL (130-400); RED BLOOD COUNT 3.54 10^6/uL (4.35-5.85); RED CELL DISTRIBUTION WIDTH 15.8 % (10.0-14.5); WHITE BLOOD COUNT 4.1 10^3/uL (4.3-11.0)
[2016-09-30 10:34] LABS: ALANINE AMINOTRANSFERASE 8 U/L (0-55); ALBUMIN 3.9 GM/DL (3.2-4.5); ANION GAP 11 MMOL/L (5-14); ASPARTATE AMINO TRANSFERASE 13 U/L (5-34); BILIRUBIN,TOTAL 0.3 MG/DL (0.1-1.0); BLOOD UREA NITROGEN 15 MG/DL (7-18); BUN/CREATININE RATIO 20 (0-20); CALCIUM 9.8 MG/DL (8.5-10.1); CARBON DIOXIDE 23 MMOL/L (21-32); CHLORIDE 104 MMOL/L (98-107); CREATININE SERUM 0.75 MG/DL (0.60-1.30); GFR ESTIMATED > 60; GLUCOSE 113 MG/DL (70-105); LACTATE DEHYDROGENASE 182 U/L (125-220); POTASSIUM 3.9 MMOL/L (3.6-5.0); SODIUM 138 MMOL/L (135-145); TOTAL PROTEIN 7.4 GM/DL (6.4-8.2); URIC ACID 4.5 MG/DL (2.6-7.2)
[2016-10-07 14:32] LABS: BASOPHILS % (AUTO) 1 % (0-10); EOSINOPHILS # (AUTO) 0.1 10^3/uL (0.0-0.3); EOSINOPHILS % (AUTO) 9 % (0-10); LYMPHOCYTES # (AUTO) 0.1 X 10^3 (1.0-4.0); LYMPHOCYTES % (AUTO) 6 % (12-44); MEAN CORPUSCULAR HEMOGLOBIN 26 PG (25-34); MEAN CORPUSCULAR HGB CONC 31 G/DL (32-36); MEAN CORPUSCULAR VOLUME 84 FL (80-99); MEAN PLATELET VOLUME 10.7 FL (7.4-10.4); MONOCYTES # (AUTO) 0.1 X 10^3 (0.0-1.0); MONOCYTES % (AUTO) 9 % (0-12); NEUTROPHILS # (AUTO) 1.1 X 10^3 (1.8-7.8); NEUTROPHILS % (AUTO) 75 % (42-75); PLATELET COUNT 194 10^3/uL (130-400); RED BLOOD COUNT 3.41 10^6/uL (4.35-5.85); RED CELL DISTRIBUTION WIDTH 15.8 % (10.0-14.5)
[2016-10-07 14:33] LABS: WHITE BLOOD COUNT 1.4 10^3/uL (4.3-11.0)
[2016-10-07 14:49] LABS: ANION GAP 7 MMOL/L (5-14); BLOOD UREA NITROGEN 13 MG/DL (7-18); BUN/CREATININE RATIO 16 (0-20); CALCIUM 9.3 MG/DL (8.5-10.1); CARBON DIOXIDE 27 MMOL/L (21-32); CHLORIDE 101 MMOL/L (98-107); CREATININE SERUM 0.83 MG/DL (0.60-1.30); GFR ESTIMATED > 60; GLUCOSE 94 MG/DL (70-105); HEMOLYSIS 3 (-100-29); ICTERUS 0.8 (-100-1.9); LIPEMIA -1 (-100-49); SODIUM 135 MMOL/L (135-145)
[2016-10-14 10:12] LABS: BASOPHILS % (AUTO) 0 % (0-10); EOSINOPHILS % (AUTO) 1 % (0-10); LYMPHOCYTES # (AUTO) 0.2 X 10^3 (1.0-4.0); LYMPHOCYTES % (AUTO) 3 % (12-44); MEAN CORPUSCULAR HEMOGLOBIN 27 PG (25-34); MEAN CORPUSCULAR HGB CONC 31 G/DL (32-36); MEAN CORPUSCULAR VOLUME 85 FL (80-99); MEAN PLATELET VOLUME 9.1 FL (7.4-10.4); MONOCYTES # (AUTO) 0.5 X 10^3 (0.0-1.0); MONOCYTES % (AUTO) 7 % (0-12); NEUTROPHILS # (AUTO) 6.6 X 10^3 (1.8-7.8); NEUTROPHILS % (AUTO) 90 % (42-75); PLATELET COUNT 262 10^3/uL (130-400); RED CELL DISTRIBUTION WIDTH 17.6 % (10.0-14.5); WHITE BLOOD COUNT 7.3 10^3/uL (4.3-11.0)
[2016-10-14 10:50] LABS: ANION GAP 8 MMOL/L (5-14); BLOOD UREA NITROGEN 11 MG/DL (7-18); BUN/CREATININE RATIO 14; CALCIUM 9.3 MG/DL (8.5-10.1); CARBON DIOXIDE 26 MMOL/L (21-32); CHLORIDE 104 MMOL/L (98-107); CREATININE SERUM 0.78 MG/DL (0.60-1.30); GFR ESTIMATED > 60; GLUCOSE 123 MG/DL (70-105); HEMOLYSIS 9 (-100-29); ICTERUS 0.4 (-100-1.9); LIPEMIA 13 (-100-49); POTASSIUM 4.1 MMOL/L (3.6-5.0); SODIUM 138 MMOL/L (135-145); URIC ACID 5.6 MG/DL (2.6-7.2)
[~2016-10-21] VITALS: Ht 160 cm; Wt 59.0 kg
[~2016-10-21] MED LIST changes: +ACETAMINOPHEN 325 MG TAB (TYLENOL) CANCER CTR ONE; +ACETAMINOPHEN 325 MG TAB (TYLENOL) CANCER CTR PO PRN; +CYCLOPHOSPHAMIDE INJECTION 1,000 MG, CYCLOPHOSPHAMIDE INJECTION 200 MG in NS (IVPB) CAN... IV SCH; +DOXORUBICIN HCL IV SCH; +FAMOTIDINE 20MG/2ML IV (CANCER CTR) IV SCH; +FOSAPREPITANT 150 MG/NS 150 MG IVPB (CANCER CTR) IV PRN; +MEPERIDINE (DEMEROL) INJ 50 MG/ML CANCER CTR IV PRN; +NS IV 1000 ML (CANCER CTR) 1,000 ML ONE; +NS IV 1000 ML (CANCER CTR) IV SCH; +NS IV SCH; +ONDANSETRON 8 MG, DEXAMETHASONE 4 MG/NS 50 ML IVPB (Cancer Ctr) IV ONE; +PALONOSETRON 0.25 MG, DEXAMETHASONE 10 MG/NS 50 ML IVPB IV PRN; +PEGFILGRASTIM 6 MG/0.6ML NEULASTA SC SCH; +diphenhydrAMINE 25 MG TAB (BENADRYL) CANCER CENTER PO ONE; +diphenhydrAMINE 50 MG/ML INJ (CANCER CENTER) IV PRN; +diphenhydrAMINE 50 MG/ML INJ (CANCER CENTER) ONE; +riTUXimab 500 MG, riTUXimab FOR IV INJ CONC 100 MG in NS (IVPB) CANCER CENTER ONLY 140 ML IV SCH; +vinCRIStine SULFATE 2 MG in NS (IVPB) CANCER CENTER 50 ML IV SCH
[2016-10-21 14:46] LABS: BASOPHILS % (AUTO) 0 % (0-10); EOSINOPHILS % (AUTO) 1 % (0-10); LYMPHOCYTES # (AUTO) 0.2 X 10^3 (1.0-4.0); LYMPHOCYTES % (AUTO) 4 % (12-44); MEAN CORPUSCULAR HEMOGLOBIN 27 PG (25-34); MEAN CORPUSCULAR HGB CONC 31 G/DL (32-36); MEAN CORPUSCULAR VOLUME 86 FL (80-99); MEAN PLATELET VOLUME 8.7 FL (7.4-10.4); MONOCYTES # (AUTO) 0.4 X 10^3 (0.0-1.0); MONOCYTES % (AUTO) 9 % (0-12); NEUTROPHILS # (AUTO) 4.2 X 10^3 (1.8-7.8); NEUTROPHILS % (AUTO) 87 % (42-75); PLATELET COUNT 340 10^3/uL (130-400); RED CELL DISTRIBUTION WIDTH 18.2 % (10.0-14.5); WHITE BLOOD COUNT 4.9 10^3/uL (4.3-11.0)
[2016-10-21 15:51] LABS: ANION GAP 9 MMOL/L (5-14); BLOOD UREA NITROGEN 10 MG/DL (7-18); BUN/CREATININE RATIO 14; CALCIUM 9.1 MG/DL (8.5-10.1); CARBON DIOXIDE 23 MMOL/L (21-32); CHLORIDE 105 MMOL/L (98-107); CREATININE SERUM 0.72 MG/DL (0.60-1.30); GFR ESTIMATED > 60; GLUCOSE 131 MG/DL (70-105); POTASSIUM 3.6 MMOL/L (3.6-5.0); SODIUM 137 MMOL/L (135-145); URIC ACID 4.1 MG/DL (2.6-7.2)
== END | disposition home or self-care (01) ==
LOC: ONC 07-23 10:03
PROVIDERS: ATTEND Internal Medicine Hematology & Oncology
DX: C83.30 Diffuse large B-cell lymphoma, unspecified site (principal); D64.9 Anemia, unspecified; R60.0 Localized edema; D53.9 Nutritional anemia, unspecified; M85.80 Other specified disorders of bone density and structure, unspecified site; Z87.891 Personal history of nicotine dependence; Z79.899 Other long term (current) drug therapy
CPT/HCPCS: 36415; 36591; 80048; 80053; 80074; 83615; 84550; 85025; 96361; 96367; 96372; 96374; 96375; 96411; 96413; 96415; 96417; 99213; 99214

== ENCOUNTER 2017-01-13 14:28 | Outpatient (RCR) | payer OTHER ==
[2016-10-28 09:20] LABS: BASOPHILS % (AUTO) 1 % (0-10); EOSINOPHILS # (AUTO) 0.1 10^3/uL (0.0-0.3); EOSINOPHILS % (AUTO) 2 % (0-10); LYMPHOCYTES # (AUTO) 0.2 X 10^3 (1.0-4.0); LYMPHOCYTES % (AUTO) 4 % (12-44); MEAN CORPUSCULAR HEMOGLOBIN 27 PG (25-34); MEAN CORPUSCULAR HGB CONC 31 G/DL (32-36); MEAN CORPUSCULAR VOLUME 86 FL (80-99); MEAN PLATELET VOLUME 8.9 FL (7.4-10.4); MONOCYTES # (AUTO) 0.6 X 10^3 (0.0-1.0); MONOCYTES % (AUTO) 16 % (0-12); NEUTROPHILS # (AUTO) 2.9 X 10^3 (1.8-7.8); NEUTROPHILS % (AUTO) 77 % (42-75); PLATELET COUNT 268 10^3/uL (130-400); RED BLOOD COUNT 3.32 10^6/uL (4.35-5.85); RED CELL DISTRIBUTION WIDTH 17.8 % (10.0-14.5); WHITE BLOOD COUNT 3.7 10^3/uL (4.3-11.0)
[2016-10-28 09:48] LABS: ALANINE AMINOTRANSFERASE 9 U/L (0-55); ALBUMIN 3.9 GM/DL (3.2-4.5); ANION GAP 7 MMOL/L (5-14); ASPARTATE AMINO TRANSFERASE 12 U/L (5-34); BILIRUBIN,TOTAL 0.4 MG/DL (0.1-1.0); BLOOD UREA NITROGEN 13 MG/DL (7-18); BUN/CREATININE RATIO 17; CALCIUM 9.4 MG/DL (8.5-10.1); CARBON DIOXIDE 26 MMOL/L (21-32); CHLORIDE 105 MMOL/L (98-107); CREATININE SERUM 0.77 MG/DL (0.60-1.30); GFR ESTIMATED > 60; GLUCOSE 90 MG/DL (70-105); LACTATE DEHYDROGENASE 158 U/L (125-220); SODIUM 138 MMOL/L (135-145); TOTAL PROTEIN 7.1 GM/DL (6.4-8.2)
[2016-11-04 14:28] LABS: BASOPHILS % (AUTO) 0 % (0-10); EOSINOPHILS # (AUTO) 0.2 10^3/uL (0.0-0.3); EOSINOPHILS % (AUTO) 5 % (0-10); LYMPHOCYTES # (AUTO) 0.1 X 10^3 (1.0-4.0); LYMPHOCYTES % (AUTO) 4 % (12-44); MEAN CORPUSCULAR HEMOGLOBIN 26 PG (25-34); MEAN CORPUSCULAR HGB CONC 31 G/DL (32-36); MEAN CORPUSCULAR VOLUME 86 FL (80-99); MEAN PLATELET VOLUME 9.4 FL (7.4-10.4); MONOCYTES # (AUTO) 0.2 X 10^3 (0.0-1.0); MONOCYTES % (AUTO) 7 % (0-12); NEUTROPHILS # (AUTO) 2.8 X 10^3 (1.8-7.8); NEUTROPHILS % (AUTO) 85 % (42-75); PLATELET COUNT 198 10^3/uL (130-400); RED BLOOD COUNT 3.47 10^6/uL (4.35-5.85); RED CELL DISTRIBUTION WIDTH 17.1 % (10.0-14.5); WHITE BLOOD COUNT 3.3 10^3/uL (4.3-11.0)
[2016-11-04 15:33] LABS: ANION GAP 8 MMOL/L (5-14); BLOOD UREA NITROGEN 13 MG/DL (7-18); BUN/CREATININE RATIO 17; CALCIUM 9.5 MG/DL (8.5-10.1); CARBON DIOXIDE 27 MMOL/L (21-32); CHLORIDE 101 MMOL/L (98-107); CREATININE SERUM 0.76 MG/DL (0.60-1.30); GFR ESTIMATED > 60; GLUCOSE 118 MG/DL (70-105); POTASSIUM 4.5 MMOL/L (3.6-5.0); SODIUM 136 MMOL/L (135-145); URIC ACID 4.7 MG/DL (2.6-7.2)
[2016-11-11 14:44] LABS: BASOPHILS % (AUTO) 0 % (0-10); EOSINOPHILS # (AUTO) 0.1 10^3/uL (0.0-0.3); EOSINOPHILS % (AUTO) 1 % (0-10); LYMPHOCYTES # (AUTO) 0.2 X 10^3 (1.0-4.0); LYMPHOCYTES % (AUTO) 2 % (12-44); MEAN CORPUSCULAR HEMOGLOBIN 27 PG (25-34); MEAN CORPUSCULAR HGB CONC 30 G/DL (32-36); MEAN CORPUSCULAR VOLUME 89 FL (80-99); MEAN PLATELET VOLUME 9.1 FL (7.4-10.4); MONOCYTES # (AUTO) 0.4 X 10^3 (0.0-1.0); MONOCYTES % (AUTO) 5 % (0-12); NEUTROPHILS # (AUTO) 6.8 X 10^3 (1.8-7.8); NEUTROPHILS % (AUTO) 91 % (42-75); PLATELET COUNT 237 10^3/uL (130-400); RED BLOOD COUNT 3.24 10^6/uL (4.35-5.85); WHITE BLOOD COUNT 7.5 10^3/uL (4.3-11.0)
[2016-11-11 15:12] LABS: ANION GAP 3 MMOL/L (5-14); BLOOD UREA NITROGEN 16 MG/DL (7-18); BUN/CREATININE RATIO 20; CARBON DIOXIDE 31 MMOL/L (21-32); CHLORIDE 106 MMOL/L (98-107); CREATININE SERUM 0.79 MG/DL (0.60-1.30); GFR ESTIMATED > 60; GLUCOSE 111 MG/DL (70-105); POTASSIUM 4.6 MMOL/L (3.6-5.0); SODIUM 140 MMOL/L (135-145); URIC ACID 5.6 MG/DL (2.6-7.2)
[2016-11-18 14:30] LABS: BASOPHILS % (AUTO) 0 % (0-10); EOSINOPHILS % (AUTO) 0 % (0-10); LYMPHOCYTES # (AUTO) 0.2 X 10^3 (1.0-4.0); LYMPHOCYTES % (AUTO) 5 % (12-44); MEAN CORPUSCULAR HEMOGLOBIN 27 PG (25-34); MEAN CORPUSCULAR HGB CONC 30 G/DL (32-36); MEAN CORPUSCULAR VOLUME 89 FL (80-99); MEAN PLATELET VOLUME 9.1 FL (7.4-10.4); MONOCYTES # (AUTO) 0.4 X 10^3 (0.0-1.0); MONOCYTES % (AUTO) 9 % (0-12); NEUTROPHILS # (AUTO) 4.1 X 10^3 (1.8-7.8); NEUTROPHILS % (AUTO) 85 % (42-75); PLATELET COUNT 301 10^3/uL (130-400); RED BLOOD COUNT 3.57 10^6/uL (4.35-5.85); RED CELL DISTRIBUTION WIDTH 18.3 % (10.0-14.5); WHITE BLOOD COUNT 4.8 10^3/uL (4.3-11.0)
[2016-11-18 14:59] LABS: ANION GAP 7 MMOL/L (5-14); BLOOD UREA NITROGEN 17 MG/DL (7-18); BUN/CREATININE RATIO 25; CALCIUM 9.4 MG/DL (8.5-10.1); CARBON DIOXIDE 26 MMOL/L (21-32); CHLORIDE 104 MMOL/L (98-107); CREATININE SERUM 0.69 MG/DL (0.60-1.30); GFR ESTIMATED > 60; GLUCOSE 99 MG/DL (70-105); POTASSIUM 4.4 MMOL/L (3.6-5.0); SODIUM 137 MMOL/L (135-145); URIC ACID 4.2 MG/DL (2.6-7.2)
[2016-11-25 09:51] LABS: BASOPHILS % (AUTO) 0 % (0-10); EOSINOPHILS # (AUTO) 0.1 10^3/uL (0.0-0.3); EOSINOPHILS % (AUTO) 2 % (0-10); LYMPHOCYTES # (AUTO) 0.2 X 10^3 (1.0-4.0); LYMPHOCYTES % (AUTO) 4 % (12-44); MEAN CORPUSCULAR HEMOGLOBIN 28 PG (25-34); MEAN CORPUSCULAR HGB CONC 32 G/DL (32-36); MEAN CORPUSCULAR VOLUME 88 FL (80-99); MEAN PLATELET VOLUME 8.6 FL (7.4-10.4); MONOCYTES # (AUTO) 0.4 X 10^3 (0.0-1.0); MONOCYTES % (AUTO) 9 % (0-12); NEUTROPHILS # (AUTO) 3.8 X 10^3 (1.8-7.8); NEUTROPHILS % (AUTO) 85 % (42-75); PLATELET COUNT 253 10^3/uL (130-400); RED BLOOD COUNT 3.45 10^6/uL (4.35-5.85); RED CELL DISTRIBUTION WIDTH 17.2 % (10.0-14.5); WHITE BLOOD COUNT 4.4 10^3/uL (4.3-11.0)
[2016-11-25 10:15] LABS: ALANINE AMINOTRANSFERASE 9 U/L (0-55); ANION GAP 8 MMOL/L (5-14); ASPARTATE AMINO TRANSFERASE 12 U/L (5-34); BILIRUBIN,TOTAL 0.4 MG/DL (0.1-1.0); BLOOD UREA NITROGEN 15 MG/DL (7-18); BUN/CREATININE RATIO 20; CALCIUM 9.9 MG/DL (8.5-10.1); CARBON DIOXIDE 26 MMOL/L (21-32); CHLORIDE 105 MMOL/L (98-107); CREATININE SERUM 0.75 MG/DL (0.60-1.30); GFR ESTIMATED > 60; GLUCOSE 110 MG/DL (70-105); LACTATE DEHYDROGENASE 137 U/L (125-220); SODIUM 139 MMOL/L (135-145); TOTAL PROTEIN 7.1 GM/DL (6.4-8.2); URIC ACID 4.4 MG/DL (2.6-7.2)
[2016-12-02 14:24] LABS: BASOPHILS % (AUTO) 1 % (0-10); EOSINOPHILS # (AUTO) 0.1 10^3/uL (0.0-0.3); EOSINOPHILS % (AUTO) 6 % (0-10); LYMPHOCYTES # (AUTO) 0.1 X 10^3 (1.0-4.0); LYMPHOCYTES % (AUTO) 5 % (12-44); MEAN CORPUSCULAR HEMOGLOBIN 27 PG (25-34); MEAN CORPUSCULAR HGB CONC 31 G/DL (32-36); MEAN CORPUSCULAR VOLUME 89 FL (80-99); MONOCYTES # (AUTO) 0.2 X 10^3 (0.0-1.0); MONOCYTES % (AUTO) 7 % (0-12); NEUTROPHILS # (AUTO) 1.7 X 10^3 (1.8-7.8); NEUTROPHILS % (AUTO) 82 % (42-75); PLATELET COUNT 166 10^3/uL (130-400); RED BLOOD COUNT 3.37 10^6/uL (4.35-5.85); RED CELL DISTRIBUTION WIDTH 16.5 % (10.0-14.5); WHITE BLOOD COUNT 2.1 10^3/uL (4.3-11.0)
[2016-12-02 15:03] LABS: ANION GAP 4 MMOL/L (5-14); BLOOD UREA NITROGEN 13 MG/DL (7-18); BUN/CREATININE RATIO 20; CALCIUM 9.6 MG/DL (8.5-10.1); CARBON DIOXIDE 30 MMOL/L (21-32); CHLORIDE 104 MMOL/L (98-107); CREATININE SERUM 0.64 MG/DL (0.60-1.30); GFR ESTIMATED > 60; GLUCOSE 86 MG/DL (70-105); POTASSIUM 4.7 MMOL/L (3.6-5.0); SODIUM 138 MMOL/L (135-145)
[2016-12-09 14:46] LABS: BASOPHILS % (AUTO) 0 % (0-10); EOSINOPHILS # (AUTO) 0.1 10^3/uL (0.0-0.3); EOSINOPHILS % (AUTO) 1 % (0-10); LYMPHOCYTES # (AUTO) 0.1 X 10^3 (1.0-4.0); LYMPHOCYTES % (AUTO) 2 % (12-44); MEAN CORPUSCULAR HEMOGLOBIN 28 PG (25-34); MEAN CORPUSCULAR HGB CONC 31 G/DL (32-36); MEAN CORPUSCULAR VOLUME 89 FL (80-99); MEAN PLATELET VOLUME 9.3 FL (7.4-10.4); MONOCYTES # (AUTO) 0.5 X 10^3 (0.0-1.0); MONOCYTES % (AUTO) 7 % (0-12); NEUTROPHILS # (AUTO) 6.8 X 10^3 (1.8-7.8); NEUTROPHILS % (AUTO) 90 % (42-75); PLATELET COUNT 236 10^3/uL (130-400); RED BLOOD COUNT 3.41 10^6/uL (4.35-5.85); RED CELL DISTRIBUTION WIDTH 16.8 % (10.0-14.5); WHITE BLOOD COUNT 7.5 10^3/uL (4.3-11.0)
[2016-12-09 15:08] LABS: ANION GAP 7 MMOL/L (5-14); BLOOD UREA NITROGEN 13 MG/DL (7-18); BUN/CREATININE RATIO 18; CALCIUM 8.9 MG/DL (8.5-10.1); CARBON DIOXIDE 26 MMOL/L (21-32); CHLORIDE 104 MMOL/L (98-107); CREATININE SERUM 0.72 MG/DL (0.60-1.30); GFR ESTIMATED > 60; GLUCOSE 98 MG/DL (70-105); POTASSIUM 4.2 MMOL/L (3.6-5.0); SODIUM 137 MMOL/L (135-145)
[2016-12-16 14:43] LABS: BASOPHILS % (AUTO) 0 % (0-10); EOSINOPHILS % (AUTO) 0 % (0-10); LYMPHOCYTES # (AUTO) 0.2 X 10^3 (1.0-4.0); LYMPHOCYTES % (AUTO) 3 % (12-44); MEAN CORPUSCULAR HEMOGLOBIN 28 PG (25-34); MEAN CORPUSCULAR HGB CONC 31 G/DL (32-36); MEAN CORPUSCULAR VOLUME 90 FL (80-99); MEAN PLATELET VOLUME 9.4 FL (7.4-10.4); MONOCYTES # (AUTO) 0.6 X 10^3 (0.0-1.0); MONOCYTES % (AUTO) 8 % (0-12); NEUTROPHILS # (AUTO) 6.1 X 10^3 (1.8-7.8); NEUTROPHILS % (AUTO) 88 % (42-75); PLATELET COUNT 263 10^3/uL (130-400); RED BLOOD COUNT 3.44 10^6/uL (4.35-5.85); RED CELL DISTRIBUTION WIDTH 16.6 % (10.0-14.5)
[2016-12-16 15:00] LABS: ANION GAP 9 MMOL/L (5-14); BLOOD UREA NITROGEN 16 MG/DL (7-18); BUN/CREATININE RATIO 23; CALCIUM 9.1 MG/DL (8.5-10.1); CARBON DIOXIDE 24 MMOL/L (21-32); CHLORIDE 104 MMOL/L (98-107); CREATININE SERUM 0.69 MG/DL (0.60-1.30); GFR ESTIMATED > 60; GLUCOSE 99 MG/DL (70-105); POTASSIUM 4.4 MMOL/L (3.6-5.0); SODIUM 137 MMOL/L (135-145)
[2016-12-23 08:53] LABS: BASOPHILS % (AUTO) 0 % (0-10); EOSINOPHILS # (AUTO) 0.1 10^3/uL (0.0-0.3); EOSINOPHILS % (AUTO) 2 % (0-10); LYMPHOCYTES # (AUTO) 0.1 X 10^3 (1.0-4.0); LYMPHOCYTES % (AUTO) 3 % (12-44); MEAN CORPUSCULAR HEMOGLOBIN 28 PG (25-34); MEAN CORPUSCULAR HGB CONC 31 G/DL (32-36); MEAN CORPUSCULAR VOLUME 89 FL (80-99); MEAN PLATELET VOLUME 9.5 FL (7.4-10.4); MONOCYTES # (AUTO) 0.5 X 10^3 (0.0-1.0); MONOCYTES % (AUTO) 12 % (0-12); NEUTROPHILS # (AUTO) 3.7 X 10^3 (1.8-7.8); NEUTROPHILS % (AUTO) 83 % (42-75); PLATELET COUNT 275 10^3/uL (130-400); RED BLOOD COUNT 3.37 10^6/uL (4.35-5.85); WHITE BLOOD COUNT 4.5 10^3/uL (4.3-11.0)
[2016-12-23 09:21] LABS: URIC ACID 4.8 MG/DL (2.6-7.2)
[2016-12-23 09:23] LABS: ALANINE AMINOTRANSFERASE 10 U/L (0-55); ALBUMIN 3.7 GM/DL (3.2-4.5); ANION GAP 11 MMOL/L (5-14); ASPARTATE AMINO TRANSFERASE 14 U/L (5-34); BILIRUBIN,TOTAL 0.3 MG/DL (0.1-1.0); BLOOD UREA NITROGEN 15 MG/DL (7-18); BUN/CREATININE RATIO 20; CALCIUM 9.3 MG/DL (8.5-10.1); CARBON DIOXIDE 24 MMOL/L (21-32); CHLORIDE 108 MMOL/L (98-107); CREATININE SERUM 0.74 MG/DL (0.60-1.30); GFR ESTIMATED > 60; GLUCOSE 105 MG/DL (70-105); LACTATE DEHYDROGENASE 143 U/L (125-220); POTASSIUM 3.8 MMOL/L (3.6-5.0); SODIUM 143 MMOL/L (135-145); TOTAL PROTEIN 6.6 GM/DL (6.4-8.2)
[2016-12-30 14:43] LABS: BASOPHILS % (AUTO) 1 % (0-10); EOSINOPHILS # (AUTO) 0.2 10^3/uL (0.0-0.3); EOSINOPHILS % (AUTO) 5 % (0-10); LYMPHOCYTES # (AUTO) 0.1 X 10^3 (1.0-4.0); LYMPHOCYTES % (AUTO) 4 % (12-44); MEAN CORPUSCULAR HEMOGLOBIN 28 PG (25-34); MEAN CORPUSCULAR HGB CONC 31 G/DL (32-36); MEAN CORPUSCULAR VOLUME 90 FL (80-99); MEAN PLATELET VOLUME 9.5 FL (7.4-10.4); MONOCYTES # (AUTO) 0.3 X 10^3 (0.0-1.0); MONOCYTES % (AUTO) 7 % (0-12); NEUTROPHILS % (AUTO) 83 % (42-75); PLATELET COUNT 173 10^3/uL (130-400); RED BLOOD COUNT 3.24 10^6/uL (4.35-5.85); WHITE BLOOD COUNT 3.6 10^3/uL (4.3-11.0)
[2016-12-30 15:00] LABS: ANION GAP 8 MMOL/L (5-14); BLOOD UREA NITROGEN 20 MG/DL (7-18); BUN/CREATININE RATIO 30; CALCIUM 9.6 MG/DL (8.5-10.1); CARBON DIOXIDE 28 MMOL/L (21-32); CHLORIDE 104 MMOL/L (98-107); CREATININE SERUM 0.67 MG/DL (0.60-1.30); GFR ESTIMATED > 60; GLUCOSE 86 MG/DL (70-105); POTASSIUM 3.6 MMOL/L (3.6-5.0); SODIUM 140 MMOL/L (135-145)
[2017-01-06 14:36] LABS: BASOPHILS % (AUTO) 0 % (0-10); EOSINOPHILS # (AUTO) 0.1 10^3/uL (0.0-0.3); EOSINOPHILS % (AUTO) 1 % (0-10); LYMPHOCYTES # (AUTO) 0.2 X 10^3 (1.0-4.0); LYMPHOCYTES % (AUTO) 2 % (12-44); MEAN CORPUSCULAR HEMOGLOBIN 29 PG (25-34); MEAN CORPUSCULAR HGB CONC 32 G/DL (32-36); MEAN CORPUSCULAR VOLUME 91 FL (80-99); MEAN PLATELET VOLUME 8.6 FL (7.4-10.4); MONOCYTES # (AUTO) 0.4 X 10^3 (0.0-1.0); MONOCYTES % (AUTO) 6 % (0-12); NEUTROPHILS # (AUTO) 5.8 X 10^3 (1.8-7.8); NEUTROPHILS % (AUTO) 90 % (42-75); PLATELET COUNT 237 10^3/uL (130-400); RED BLOOD COUNT 3.39 10^6/uL (4.35-5.85); RED CELL DISTRIBUTION WIDTH 17.7 % (10.0-14.5); WHITE BLOOD COUNT 6.4 10^3/uL (4.3-11.0)
[2017-01-06 15:05] LABS: ANION GAP 7 MMOL/L (5-14); BLOOD UREA NITROGEN 12 MG/DL (7-18); BUN/CREATININE RATIO 18; CALCIUM 9.8 MG/DL (8.5-10.1); CARBON DIOXIDE 27 MMOL/L (21-32); CHLORIDE 105 MMOL/L (98-107); CREATININE SERUM 0.68 MG/DL (0.60-1.30); GFR ESTIMATED > 60; GLUCOSE 97 MG/DL (70-105); POTASSIUM 4.4 MMOL/L (3.6-5.0); SODIUM 139 MMOL/L (135-145)
[~2017-01-13] VITALS: Ht 160 cm; Wt 55.3 kg
[~2017-01-13 14:28] MED LIST changes: -ACETAMINOPHEN 325 MG TAB (TYLENOL) CANCER CTR ONE; +CYCLOPHOSPHAMIDE INJECTION 1,000 MG, CYCLOPHOSPHAMIDE INJECTION 100 MG in NS (IVPB) CAN... IV SCH; -MEPERIDINE (DEMEROL) INJ 50 MG/ML CANCER CTR IV PRN; -NS IV 1000 ML (CANCER CTR) 1,000 ML ONE; -ONDANSETRON 8 MG, DEXAMETHASONE 4 MG/NS 50 ML IVPB (Cancer Ctr) IV ONE; -diphenhydrAMINE 50 MG/ML INJ (CANCER CENTER) ONE
[2017-01-13 14:46] LABS: BASOPHILS % (AUTO) 0 % (0-10); EOSINOPHILS % (AUTO) 1 % (0-10); LYMPHOCYTES # (AUTO) 0.2 X 10^3 (1.0-4.0); LYMPHOCYTES % (AUTO) 4 % (12-44); MEAN CORPUSCULAR HEMOGLOBIN 29 PG (25-34); MEAN CORPUSCULAR HGB CONC 31 G/DL (32-36); MEAN CORPUSCULAR VOLUME 92 FL (80-99); MEAN PLATELET VOLUME 9.2 FL (7.4-10.4); MONOCYTES # (AUTO) 0.4 X 10^3 (0.0-1.0); MONOCYTES % (AUTO) 6 % (0-12); NEUTROPHILS # (AUTO) 6.1 X 10^3 (1.8-7.8); NEUTROPHILS % (AUTO) 90 % (42-75); PLATELET COUNT 292 10^3/uL (130-400); RED BLOOD COUNT 3.56 10^6/uL (4.35-5.85); RED CELL DISTRIBUTION WIDTH 17.7 % (10.0-14.5); WHITE BLOOD COUNT 6.9 10^3/uL (4.3-11.0)
[2017-01-13 15:01] LABS: ANION GAP 7 MMOL/L (5-14); BLOOD UREA NITROGEN 17 MG/DL (7-18); BUN/CREATININE RATIO 24; CALCIUM 9.9 MG/DL (8.5-10.1); CARBON DIOXIDE 27 MMOL/L (21-32); CHLORIDE 105 MMOL/L (98-107); GFR ESTIMATED > 60; GLUCOSE 104 MG/DL (70-105); POTASSIUM 4.5 MMOL/L (3.6-5.0); SODIUM 139 MMOL/L (135-145)
== END 2017-01-16 | disposition home or self-care (01) ==
LOC: ONC 14:28
PROVIDERS: ATTEND Internal Medicine Hematology & Oncology
DX: Z51.11 Encounter for antineoplastic chemotherapy (principal); C83.88 Other non-follicular lymphoma, lymph nodes of multiple sites; D70.1 Agranulocytosis secondary to cancer chemotherapy; T45.1X5A Adverse effect of antineoplastic and immunosuppressive drugs, initial encounter; D64.9 Anemia, unspecified; R60.0 Localized edema; D53.9 Nutritional anemia, unspecified; M85.80 Other specified disorders of bone density and structure, unspecified site; Z87.891 Personal history of nicotine dependence; Z79.899 Other long term (current) drug therapy
CPT/HCPCS: 36415; 36591; 80048; 80053; 83615; 83735; 84550; 85025; 96367; 96372; 96375; 96411; 96413; 96417

== ENCOUNTER → 2017-01-20 | Outpatient (CLI) | payer OTHER ==
[~2017-01-20] MED LIST changes: -ACETAMINOPHEN 325 MG TAB (TYLENOL) CANCER CTR PO PRN; +BARIUM SUSPENSION 2.1% (VANILLA SILQ) 450 ML PO ONE; -CYCLOPHOSPHAMIDE INJECTION 1,000 MG, CYCLOPHOSPHAMIDE INJECTION 100 MG in NS (IVPB) CAN... IV SCH; -CYCLOPHOSPHAMIDE INJECTION 1,000 MG, CYCLOPHOSPHAMIDE INJECTION 200 MG in NS (IVPB) CAN... IV SCH; -DOXORUBICIN HCL IV SCH; -FAMOTIDINE 20MG/2ML IV (CANCER CTR) IV SCH; -FOSAPREPITANT 150 MG/NS 150 MG IVPB (CANCER CTR) IV PRN; +IOHEXOL 350 MG/ML 100 ML (OMNIPAQUE 350) VIAL IV ONE; +NS 100 ML (IVPB) BAG IV ONE; -NS IV 1000 ML (CANCER CTR) IV SCH; -NS IV SCH; -PALONOSETRON 0.25 MG, DEXAMETHASONE 10 MG/NS 50 ML IVPB IV PRN; -PEGFILGRASTIM 6 MG/0.6ML NEULASTA SC SCH; -diphenhydrAMINE 25 MG TAB (BENADRYL) CANCER CENTER PO ONE; -diphenhydrAMINE 50 MG/ML INJ (CANCER CENTER) IV PRN; -riTUXimab 500 MG, riTUXimab FOR IV INJ CONC 100 MG in NS (IVPB) CANCER CENTER ONLY 140 ML IV SCH; -vinCRIStine SULFATE 2 MG in NS (IVPB) CANCER CENTER 50 ML IV SCH
--- NOTE | 2017-01-20 17:23 | Diagnostic Imaging Report ---
PROCEDURE: CT chest with contrast, CT abdomen and pelvis with and without contrast. TECHNIQUE: Pre and post intravenous contrast axial imaging of the abdomen and pelvis and post contrast axial imaging of the chest were performed. INDICATION: Lymphoma followup. 100 mL of Omnipaque 350 is administered intravenously. Comparison with PET/CT of 09/22/2016 is performed. FINDINGS: CT chest: There is no mediastinal mass or lymphadenopathy. No hilar or axillary lymphadenopathy is seen either. The heart size is normal. No pericardial or pleural effusion. The thoracic aorta is normal in caliber. The lungs demonstrate no significant consolidation. No mass or suspicious nodule is seen. The osseous structures appear grossly unremarkable. CT abdomen and pelvis: The liver, the pancreas, and the adrenal glands appear unremarkable. The gallbladder is not seen, presumably surgically removed with no surgical clips in place. Correlate with surgical history. The spleen demonstrates a focal hypodense lesion measuring 1.5 cm in the inferior aspect similar to prior exams, favored to be an atypical hemangioma. It is 12 cm in length, similar to prior exams near the upper limits of normal. The abdominal aorta is normal in caliber. No para-aortic significantly enlarged lymph nodes seen. The kidneys have symmetric enhancement and contrast excretion. There is no hydronephrosis. No significant free fluid or fluid collection in the abdomen or pelvis is seen. In the left side of the pelvis, there is a soft tissue mass measuring 5.3 x 3.9 x 4.8 cm centered in the left external iliac chain region with suggestion of central necrosis and peripheral enhancement. This has extension into the inguinal region through the left femoral canal. When compared to prior PET of 09/22/16, the overall measurements do not appear to be significantly changed. There has been a significant decrease in size of the mass, however, when comparison is made with the earlier scan of 07/28/16. There is suggestion of compression of the left common femoral vein and lower aspect of the left external iliac vein. The lumen of the vein is not well evaluated for patency on this exam. The osseous structures appear grossly unremarkable. Sclerotic foci in the proximal right femur and sclerotic focus in the proximal left femur less than a centimeter in size are probably related to bony islands. IMPRESSION: CT chest: No lymphadenopathy or mass seen. CT abdomen and pelvis: 1. A 5.3 cm mass centered along the left external iliac lymph node chain with mild extension into the left inguinal region with no significant change in size from 09/22/2016 exam. There is suggestion of central necrosis. 2. The lower aspect of the left external iliac vein appears to be compressed by the mass mentioned above. Dictated by: Dictated on workstation # [id number]
== END ==
LOC: RAD 10:21
PROVIDERS: ATTEND Internal Medicine Hematology & Oncology
DX: C83.36 Diffuse large B-cell lymphoma, intrapelvic lymph nodes (principal)
CPT/HCPCS: 71260; 74178

== ENCOUNTER 2017-03-24 14:25 | Outpatient (RCR) | payer OTHER ==
[2017-01-27 08:55] LABS: BASOPHILS % (AUTO) 0 % (0-10); EOSINOPHILS # (AUTO) 0.2 10^3/uL (0.0-0.3); EOSINOPHILS % (AUTO) 4 % (0-10); HEMATOCRIT 33 % (35-52); HEMOGLOBIN 10.4 G/DL (11.5-16.0); LYMPHOCYTES # (AUTO) 0.1 X 10^3 (1.0-4.0); LYMPHOCYTES % (AUTO) 2 % (12-44); MEAN CORPUSCULAR HEMOGLOBIN 29 PG (25-34); MEAN CORPUSCULAR HGB CONC 31 G/DL (32-36); MEAN CORPUSCULAR VOLUME 91 FL (80-99); MEAN PLATELET VOLUME 9.3 FL (7.4-10.4); MONOCYTES # (AUTO) 0.6 X 10^3 (0.0-1.0); MONOCYTES % (AUTO) 11 % (0-12); NEUTROPHILS # (AUTO) 4.2 X 10^3 (1.8-7.8); NEUTROPHILS % (AUTO) 83 % (42-75); PLATELET COUNT 298 10^3/uL (130-400); RED BLOOD COUNT 3.63 10^6/uL (4.35-5.85); RED CELL DISTRIBUTION WIDTH 15.7 % (10.0-14.5); WHITE BLOOD COUNT 5.1 10^3/uL (4.3-11.0)
[2017-01-27 09:15] LABS: ALANINE AMINOTRANSFERASE 13 U/L (0-55); ALKALINE PHOSPHATASE 97 U/L (40-136); BILIRUBIN,TOTAL 0.3 MG/DL (0.1-1.0); BUN/CREATININE RATIO 31; CALCIUM 10.2 MG/DL (8.5-10.1); CARBON DIOXIDE 31 MMOL/L (21-32); CHLORIDE 104 MMOL/L (98-107); CREATININE SERUM 0.75 MG/DL (0.60-1.30); GFR ESTIMATED > 60; GLUCOSE 89 MG/DL (70-105); POTASSIUM 4.6 MMOL/L (3.6-5.0); SODIUM 142 MMOL/L (135-145); TOTAL PROTEIN 7.4 GM/DL (6.4-8.2); URIC ACID 5.3 MG/DL (2.6-7.2)
[2017-04-27 10:57] LABS: BASOPHILS % (AUTO) 0 % (0-10); EOSINOPHILS # (AUTO) 0.1 10^3/uL (0.0-0.3); EOSINOPHILS % (AUTO) 3 % (0-10); HEMATOCRIT 30 % (35-52); LYMPHOCYTES # (AUTO) 0.2 X 10^3 (1.0-4.0); LYMPHOCYTES % (AUTO) 4 % (12-44); MEAN CORPUSCULAR HEMOGLOBIN 30 PG (25-34); MEAN CORPUSCULAR HGB CONC 33 G/DL (32-36); MEAN CORPUSCULAR VOLUME 91 FL (80-99); MEAN PLATELET VOLUME 8.7 FL (7.4-10.4); MONOCYTES # (AUTO) 0.5 X 10^3 (0.0-1.0); MONOCYTES % (AUTO) 13 % (0-12); NEUTROPHILS # (AUTO) 3.2 X 10^3 (1.8-7.8); NEUTROPHILS % (AUTO) 80 % (42-75); PLATELET COUNT 248 10^3/uL (130-400); RED BLOOD COUNT 3.34 10^6/uL (4.35-5.85); RED CELL DISTRIBUTION WIDTH 13.9 % (10.0-14.5); WHITE BLOOD COUNT 4.1 10^3/uL (4.3-11.0)
[2017-04-27 11:16] LABS: ALANINE AMINOTRANSFERASE 12 U/L (0-55); ALBUMIN 3.4 GM/DL (3.2-4.5); ALKALINE PHOSPHATASE 73 U/L (40-136); BILIRUBIN,TOTAL 0.3 MG/DL (0.1-1.0); BUN/CREATININE RATIO 18; CALCIUM 9.2 MG/DL (8.5-10.1); CARBON DIOXIDE 27 MMOL/L (21-32); CHLORIDE 105 MMOL/L (98-107); CREATININE SERUM 0.68 MG/DL (0.60-1.30); GFR ESTIMATED > 60; GLUCOSE 106 MG/DL (70-105); POTASSIUM 3.9 MMOL/L (3.6-5.0); SODIUM 141 MMOL/L (135-145)
== END 2017-04-26 | disposition home or self-care (01) ==
LOC: ONC 14:25
PROVIDERS: ATTEND Internal Medicine Hematology & Oncology
DX: C83.88 Other non-follicular lymphoma, lymph nodes of multiple sites (principal); D70.1 Agranulocytosis secondary to cancer chemotherapy; T45.1X5A Adverse effect of antineoplastic and immunosuppressive drugs, initial encounter; D64.9 Anemia, unspecified; R60.0 Localized edema; D53.9 Nutritional anemia, unspecified; M85.80 Other specified disorders of bone density and structure, unspecified site; Z87.891 Personal history of nicotine dependence; Z79.899 Other long term (current) drug therapy
CPT/HCPCS: 36415; 36591; 77300; 77301; 77307; 77334; 77336; 77338; 77386; 77417; 77470; 80053; 83615; 83735; 84550; 85025; 96523; 99213; 99214

== ENCOUNTER → 2017-03-24 | Outpatient (CLI) | payer OTHER ==
[~2017-03-24] MED LIST changes: -BARIUM SUSPENSION 2.1% (VANILLA SILQ) 450 ML PO ONE; -IOHEXOL 350 MG/ML 100 ML (OMNIPAQUE 350) VIAL IV ONE; -NS 100 ML (IVPB) BAG IV ONE
[2017-03-24 14:52] LABS: BASOPHILS % (AUTO) 0 % (0-10); EOSINOPHILS # (AUTO) 0.3 10^3/uL (0.0-0.3); EOSINOPHILS % (AUTO) 8 % (0-10); LYMPHOCYTES # (AUTO) 0.2 X 10^3 (1.0-4.0); LYMPHOCYTES % (AUTO) 5 % (12-44); MEAN CORPUSCULAR HEMOGLOBIN 30 PG (25-34); MEAN CORPUSCULAR HGB CONC 33 G/DL (32-36); MEAN CORPUSCULAR VOLUME 92 FL (80-99); MEAN PLATELET VOLUME 9.5 FL (7.4-10.4); MONOCYTES # (AUTO) 0.3 X 10^3 (0.0-1.0); MONOCYTES % (AUTO) 10 % (0-12); NEUTROPHILS # (AUTO) 2.5 X 10^3 (1.8-7.8); NEUTROPHILS % (AUTO) 76 % (42-75); PLATELET COUNT 254 10^3/uL (130-400); RED BLOOD COUNT 3.57 10^6/uL (4.35-5.85); RED CELL DISTRIBUTION WIDTH 14.5 % (10.0-14.5); WHITE BLOOD COUNT 3.3 10^3/uL (4.3-11.0)
[2017-03-24 15:08] LABS: ALANINE AMINOTRANSFERASE 12 U/L (0-55); ALBUMIN 3.4 GM/DL (3.2-4.5); ANION GAP 6 MMOL/L (5-14); ASPARTATE AMINO TRANSFERASE 17 U/L (5-34); BILIRUBIN,TOTAL 0.4 MG/DL (0.1-1.0); BLOOD UREA NITROGEN 16 MG/DL (7-18); BUN/CREATININE RATIO 24; CALCIUM 8.9 MG/DL (8.5-10.1); CARBON DIOXIDE 26 MMOL/L (21-32); CHLORIDE 108 MMOL/L (98-107); CHOLESTEROL 154 MG/DL (< 200); CREATININE SERUM 0.67 MG/DL (0.60-1.30); DIRECT LDL 81 MG/DL (1-129); GFR ESTIMATED > 60; GLUCOSE 93 MG/DL (70-105); POTASSIUM 4.4 MMOL/L (3.6-5.0); SODIUM 140 MMOL/L (135-145); TOTAL PROTEIN 6.1 GM/DL (6.4-8.2); TRIGLYCERIDES 92 MG/DL (<150); VLDL CHOLESTEROL 18 MG/DL (5-40)
[2017-03-24 15:30] LABS: THYROID STIMULATING HORMONE 0.98 UIU/ML (0.35-4.94)
== END ==
LOC: LAB 03-19 12:38
DX: R53.83 Other fatigue (principal); I89.0 Lymphedema, not elsewhere classified; E78.00 Pure hypercholesterolemia, unspecified
CPT/HCPCS: 80053; 80061; 84443; 85025

== ENCOUNTER → 2017-06-09 | Outpatient (CLI) | payer OTHER ==
[~2017-06-09] MED LIST changes: +BARIUM SUSPENSION 2.1% (VANILLA SILQ) 450 ML PO ONE; +HYDR-34 PO; -HYDR-3816 PO; +IOHEXOL 350 MG/ML 100 ML (OMNIPAQUE 350) VIAL IV ONE; +NS 250 ML (IVPB) BAG IV ONE
--- NOTE | 2017-06-09 13:16 | Diagnostic Imaging Report ---
PROCEDURE: CT chest with contrast, CT abdomen and pelvis with and without contrast. TECHNIQUE: Pre and post intravenous contrast axial imaging of the abdomen and pelvis and post contrast axial imaging of the chest were performed. INDICATION: Diffuse large B-cell lymphoma. FINDINGS: The previous CT chest, abdomen and pelvis exam performed on 01/20/17 failed to show any abnormality involving the thorax. On this exam, however, there is now a large 3.6 x 4.4 x 6.9 cm subcarinal mass. Furthermore, right lower lobe pneumonia/atelectasis and a sizable right pleural effusion have developed since the prior exam. The effusion measures approximately 6.3 cm in maximum depth. There is also another new mass along the periphery of the left lung. This is pleural based and measures 1.9 x 2.4 x 2.6 cm. A small 0.6 x 1.0 cm nodule has also developed in the right middle lobe and there is some atelectasis/infiltrate in the right middle and right upper lobe as well. All of these masses should be considered neoplastic until proven otherwise. The heart size is within normal limits and stable when compared to the prior exam. A small 5 mm pericardial effusion has developed along the apex of the heart. The aorta is not abnormally dilated and there is no sign of a dissection. The pulmonary arteries were not well opacified. There is no definite defect to suggest a pulmonary embolus. There is no obvious breast mass. The images through the abdomen and pelvis reveal that in the interval since the prior exam, a moderate to large amount of ascites has developed. Furthermore, there are now 2 large contiguous masses along the anterior abdomen. These extend from the level of the gastric antrum caudally to the bifurcation. These masses have a conglomerate size of approximately 7.7 x 10.2 x 16.3 cm. The central portions of these masses are diminished density suggesting necrosis. These masses may be arising from the omentum. In addition, there is a 2.8 x 4.7 x 5.5 cm mass immediately beneath the posterior aspect of the left hemidiaphragm. This was not present on the prior exam. There is also another new mass in the right upper quadrant. This is interposed between the stomach/duodenum and liver. This measures approximately 4.7 x 6.3 x 6.2 cm. This mass is effacing the pancreatic head and the common bile duct and the biliary tree does not seem to be significantly dilated. The low density soft tissue mass in the left side of the pelvis measuring 3.9 x 4.5 cm is difficult to visualize on this exam. There does seem to be generalized thickening of the wall of the peritoneum and this may be secondary to neoplastic infiltration of the wall of the peritoneum. The urinary bladder is grossly unremarkable. The uterus is not well visualized and may be surgically absent. The bone windows show no sign of a fracture or of a destructive lesion. IMPRESSION: 1. The appearance of the chest has worsened considerably since the prior exam as a large subcarinal mass has developed. There is also a new 1.9 x 2.4 cm mass in the periphery of the left lung base and there is a subcentimeter mass in the right middle lobe. These masses should be considered neoplastic until proven otherwise. Right lower lobe pneumonia/atelectasis and a sizable right pleural effusion are also now present. 2. A large bilobed omental mass is also developed in the interval since the prior exam. There is also a mass beneath the left hemidiaphragm and in the right upper quadrant. These masses also should be considered neoplastic until proven otherwise. 3. There does seem to be generalized thickening of the wall of the peritoneum and there may be neoplastic infiltration of the peritoneum as well. 4. There is a moderate to large volume of ascites as well. Dictated by: Dictated on workstation # [id number]
== END ==
LOC: RAD 10:52
PROVIDERS: ATTEND Internal Medicine Hematology & Oncology
DX: C83.36 Diffuse large B-cell lymphoma, intrapelvic lymph nodes (principal); J90 Pleural effusion, not elsewhere classified; R18.8 Other ascites
CPT/HCPCS: 71260; 74178

== ENCOUNTER 2017-06-10 10:17 | Outpatient (RCR) | payer OTHER ==
[2017-06-08 14:16] LABS: BASOPHILS % (AUTO) 0 % (0-10); EOSINOPHILS % (AUTO) 0 % (0-10); HEMATOCRIT 32 % (35-52); HEMOGLOBIN 10.4 G/DL (11.5-16.0); LYMPHOCYTES # (AUTO) 0.1 X 10^3 (1.0-4.0); LYMPHOCYTES % (AUTO) 1 % (12-44); MEAN CORPUSCULAR HEMOGLOBIN 29 PG (25-34); MEAN CORPUSCULAR HGB CONC 33 G/DL (32-36); MEAN CORPUSCULAR VOLUME 88 FL (80-99); MEAN PLATELET VOLUME 8.7 FL (7.4-10.4); MONOCYTES # (AUTO) 0.6 X 10^3 (0.0-1.0); MONOCYTES % (AUTO) 6 % (0-12); NEUTROPHILS # (AUTO) 9.3 X 10^3 (1.8-7.8); NEUTROPHILS % (AUTO) 93 % (42-75); PLATELET COUNT 473 10^3/uL (130-400); RED CELL DISTRIBUTION WIDTH 13.5 % (10.0-14.5)
[2017-06-08 14:44] LABS: ALANINE AMINOTRANSFERASE 15 U/L (0-55); ALBUMIN 2.8 GM/DL (3.2-4.5); ALKALINE PHOSPHATASE 106 U/L (40-136); BILIRUBIN,TOTAL 0.7 MG/DL (0.1-1.0); BUN/CREATININE RATIO 15; CALCIUM 10.2 MG/DL (8.5-10.1); CARBON DIOXIDE 26 MMOL/L (21-32); CHLORIDE 101 MMOL/L (98-107); CREATININE SERUM 0.66 MG/DL (0.60-1.30); GFR ESTIMATED > 60; GLUCOSE 109 MG/DL (70-105); POTASSIUM 3.8 MMOL/L (3.6-5.0); SODIUM 136 MMOL/L (135-145); TOTAL PROTEIN 5.5 GM/DL (6.4-8.2)
[~2017-06-10] VITALS: Ht 160 cm; Wt 55.3 kg
[~2017-06-10 10:17] MED LIST changes: -BARIUM SUSPENSION 2.1% (VANILLA SILQ) 450 ML PO ONE; -IOHEXOL 350 MG/ML 100 ML (OMNIPAQUE 350) VIAL IV ONE; -NS 250 ML (IVPB) BAG IV ONE
[2017-06-10 12:12] LABS: BASOPHILS % (AUTO) 0 % (0-10); EOSINOPHILS % (AUTO) 0 % (0-10); HEMATOCRIT 35 % (35-52); HEMOGLOBIN 11.3 G/DL (11.5-16.0); LYMPHOCYTES # (AUTO) 0.1 X 10^3 (1.0-4.0); LYMPHOCYTES % (AUTO) 1 % (12-44); MEAN CORPUSCULAR HEMOGLOBIN 29 PG (25-34); MEAN CORPUSCULAR HGB CONC 33 G/DL (32-36); MEAN CORPUSCULAR VOLUME 89 FL (80-99); MEAN PLATELET VOLUME 9.2 FL (7.4-10.4); MONOCYTES # (AUTO) 0.3 X 10^3 (0.0-1.0); MONOCYTES % (AUTO) 2 % (0-12); NEUTROPHILS # (AUTO) 13.1 X 10^3 (1.8-7.8); NEUTROPHILS % (AUTO) 96 % (42-75); PLATELET COUNT 495 10^3/uL (130-400); RED BLOOD COUNT 3.92 10^6/uL (4.35-5.85); RED CELL DISTRIBUTION WIDTH 14.2 % (10.0-14.5); WHITE BLOOD COUNT 13.6 10^3/uL (4.3-11.0)
[2017-06-10 12:29] LABS: ALANINE AMINOTRANSFERASE 12 U/L (0-55); ALBUMIN 2.8 GM/DL (3.2-4.5); ALKALINE PHOSPHATASE 91 U/L (40-136); BUN/CREATININE RATIO 14; CALCIUM 11.1 MG/DL (8.5-10.1); CARBON DIOXIDE 23 MMOL/L (21-32); CHLORIDE 98 MMOL/L (98-107); CREATININE SERUM 0.76 MG/DL (0.60-1.30); GFR ESTIMATED > 60; GLUCOSE 86 MG/DL (70-105); SODIUM 135 MMOL/L (135-145); TOTAL PROTEIN 5.7 GM/DL (6.4-8.2)
== END 2017-07-26 | disposition home or self-care (01) ==
LOC: ONC 10:17
PROVIDERS: ATTEND Internal Medicine Hematology & Oncology
DX: C83.88 Other non-follicular lymphoma, lymph nodes of multiple sites (principal); D70.1 Agranulocytosis secondary to cancer chemotherapy; T45.1X5A Adverse effect of antineoplastic and immunosuppressive drugs, initial encounter; D64.9 Anemia, unspecified; R60.0 Localized edema; D53.9 Nutritional anemia, unspecified; M85.80 Other specified disorders of bone density and structure, unspecified site; Z87.891 Personal history of nicotine dependence; Z79.899 Other long term (current) drug therapy
CPT/HCPCS: 36591; 80053; 83615; 85025; 99213